=== PATIENT | male | born 1950 | race Caucasian/White ===

== ENCOUNTER 2023-09-11 12:28 | Inpatient (IN) | payer OTHER ==
[2023-09-11] VITALS (30 sets, daily range): BP systolic 57–111; BP diastolic 43–79
[~2023-09-11] VITALS: Ht 177.8 cm; Wt 79.9 kg
[2023-09-11 12:50] LABS: Calcium, Ionized (POC) 1.04 mmol/L (1.10-1.46); Chloride (POC) 103 mmol/L (98-108); Creatinine (POC) 3.7 mg/dL (0.8-1.3); Glucose (ISTAT POC) >700 mg/dL (70-99); Hemoglobin (POC) 17.7 g/dL (13.5-17.5); Potassium (POC) 2.7 mmol/L (3.5-5.5); Sodium (POC) 138 mmol/L (135-148); Total CO2 (POC) 11 mmol/L (21-32)
[2023-09-11] MEDS ORDERED: Calcium Gluconate 10% 1,000 MG in NS 50 ML IV ONE (13:00)
[2023-09-11] MEDS ORDERED: Lactated Ringer's 1,000 ML IV SCH ×3 (13:00→15:30)
[2023-09-11] MEDS ORDERED: Lactated Ringer's 1,000 ML IV ONE ×5 (13:00→21:10)
[2023-09-11 13:05] LABS: Hematocrit 52.2 % (37.0-53.0); Hemoglobin 16.7 g/dL (13.5-17.5); Mean Corpuscular Volume 94 fL (80-100); Mean Platelet Volume 11.4 fL (9.1-12.4); NRBC ABSOLUTE 0.02 K/mm3 (0.00-0.02); NRBC Auto 0.1 /100 WBC (0.0-0.2); Platelet Count 384 K/mm3 (150-400); RDW Coefficient Variation 13.2 % (11.7-14.2); Red Blood Cell Count 5.57 M/mm3 (4.30-5.90); White Blood Cell Count 29.11 K/mm3 (4.00-11.30)
[2023-09-11 13:08] LABS: Source, Urine Foley catheter
[2023-09-11 13:15] LABS: Appearance, Urine Clear (Clear); Bilirubin, Urine Neg (Neg); Blood, Urine 4+ (Neg); Color, Urine Yellow (P-Yellow); Glucose Qualitative, Urine 4+ (Neg); Ketones, Urine 3+ (Neg); Leukocyte Esterase, Urine Neg (Neg); Nitrite, Urine Neg (Neg); Protein, Urine 2+ (Neg); Urobilinogen, Urine NORM (Normal)
[2023-09-11 13:23] LABS: Amorphous Light (0-Heavy); Bacteria Few /hpf; Squamous Epithelial Cells Many /hpf (Few)
[2023-09-11 13:25] LABS: Base Excess Venous -26.1 mmol/L; Bicarbonate Venous 8.3 mmol/L (24.0-30.0); PCO2 Venous 26.1 mmHg (38-42); pH Blood Venous 6.96 (7.34-7.37)
[2023-09-11 13:25] LABS: BAND PERCENT MAN 6 % (0-8); BASOPHILS PERCENT MAN 0 % (0-2); EOSINOPHILS PERCENT MAN 0 % (0-6); LYMPHOCYTES ABSOLUTE MAN 2.91 K/mm3 (0.84-5.20); LYMPHOCYTES PERCENT MAN 10 % (21-46); METAMYELOCYTE ABSOLUTE MAN 0.29 K/mm3 (0.00-0.00); METAMYELOCYTE PERCENT MAN 1 % (0-0); MONOCYTES ABSOLUTE MAN 0.58 K/mm3 (0.16-1.47); MONOCYTES PERCENT MAN 2 % (4-13); NEUTROPHILS ABSOLUTE MAN 25.32 K/mm3 (1.96-9.15); SEG NEUTROPHILS PERCENT MAN 81 % (41-73); TOTAL CELLS COUNTED 100
[2023-09-11] MEDS ORDERED: Sodium Bicarb 8.4% Inj 150 MEQ in Dextrose 5% 1,000 ML IV SCH (13:45)
[2023-09-11 14:26] LABS: Magnesium, Blood 3.5 mg/dL (1.6-2.4); Thyroid Stimulating Hormone 0.226 uIU/mL (0.360-4.800)
[2023-09-11] MEDS ORDERED: Potassium Chloride 20 MEQ/15 ML UDC PO ONE ×2 (14:30→15:20)
[2023-09-11] MEDS ORDERED: Insulin Human Regular 100 UNIT in NS 100 ML IV SCH (15:00)
[2023-09-11 15:20] LABS: Albumin/Globulin Ratio 0.4 (0.8-1.8); Bilirubin, Total 0.5 mg/dL (0.1-1.0); Bun/Creatinine Ratio 29.4 (12.0-20.0); Creatinine, Blood 2.99 mg/dL (0.60-1.20); Globulin, Blood 4.8 g/dL (2.2-4.0); Potassium, Blood 2.5 mmol/L (3.5-5.5); Total Protein, Blood 6.8 g/dL (6.4-8.2)
[2023-09-11] MEDS ORDERED: Potassium Chloride 40 MEQ in NS 250 ML IV ONE ×2 (15:20→21:05)
[2023-09-11] MEDS ORDERED: CefTRIAXone Sodium 1,000 MG in NS 50 ML IV ONE (15:30)
[2023-09-11 16:15] LABS: U Amphetamine Screen Not Detected; U Barbituate Screen Not Detected; U Benzodiazapine Screen Not Detected; U Buprenorphine Screen Not Detected; U Cannabinoids Screen Not Detected; U Cocaine Screen Not Detected; U Methadone Screen Not Detected; U Methamphetamine Screen Not Detected; U Opiates Screen Not Detected; U Oxycodone Screen Not Detected; U Phencyclidine Screen Not Detected
[2023-09-11] MEDS ORDERED: FLU VACC QS2023-24(6MOS UP)/PF 60 MCG/0.5 ML SYRINGE IM SCH (17:00)
[2023-09-11] MEDS ORDERED: Vancomycin HCL 1,000 MG in NS 100 ML IV ONE (17:35)
[2023-09-11 17:39] LABS: Bun/Creatinine Ratio 30.1 (12.0-20.0); Calcium, Blood 8.5 mg/dL (8.5-10.1); Creatinine, Blood 2.92 mg/dL (0.60-1.20); Potassium, Blood 2.8 mmol/L (3.5-5.5)
[2023-09-11] MEDS ORDERED: Cefepime HCl 2,000 MG in NS 100 ML IV SCH (18:00)
[2023-09-11] MEDS ORDERED: NS 250 ML IV PRN ×2 (18:15→19:40)
[2023-09-11 18:45] LABS: PO2 Arterial 237 mmHg (80-100)
[2023-09-11 18:46] LABS: pH Blood Arterial 7.21 (7.35-7.45)
--- NOTE | 2023-09-11 18:47 | NUR ---
Assumed care of pt on arrival to ICU 7 from emergency department at 1735. Pt arrived intubated with 8.0 cm ETT placed 25 cm at [facility]. Dr Chan in room to see patient on arrival. Provider discussed vent settings with RT and ordered for patient to receive PICC line, PICC line placed to SLOAN with 4 cm exposed by PICC RN Delia. Pt arrived with IO to LLL. Dressing no longer intact and site would not draw back so it was removed and dressed with coban. Pt assessment is as follows: Neuro: No cough, gag or corneal reflex. No response to central or peripheral applied stimulus. Pupils are pinpoint with no response to light. Gentle movement to eyes noted when dolls eyes assessed. Pt is unrestrainted. Noted that pt reportely received rocuronium during intubation in field. Hypothermic per core measurement. External heating blanket in place. Resp: Lungs coarse t/o. Large amount of creamy green sputum aspirated from ETT and sent for culture. Vent settings are ACVC 18/500/5/35%. ETCO2 21. Pt has not breathed over set rate on vent. Cardiac: SR per monitor. BP initially stable but levophed was started due to MAP less than 65. Currently at 2 mcg/min. Strong distal pulses BUE and BLE. Capillary refill less than 3 seconds. GI: OG tube to LIS with scant amount of bilious drainage. Absent BT. : 200 mL urine output since azevedo inserted. Skin: Redness over R hip, two sores to right lateral knee. Eschar with hardness and erythema to posterior right thigh. All sites photographed and assessed with Dr Chan. Psychosocial: Neuro as discussed above. Unable to reach family, multiple attempts made by ER staff and nursing supervisor dental laboratory.
[2023-09-11 19:50] LABS: Base Excess Venous -14.1 mmol/L; Bicarbonate Venous 14.5 mmol/L (24.0-30.0); PCO2 Venous 36.7 mmHg (38-42); pH Blood Venous 7.19 (7.34-7.37)
[2023-09-11 20:33] LABS: Acetaminophen, Random <2.0 ug/mL (10.0-30.0); Salicylate 5.1 mg/dL (2.8-20.0)
[2023-09-11 20:40] LABS: Alanine Aminotransfer (ALT/SGP 23 U/L (12-78); Albumin, Blood 1.9 g/dL (3.4-5.0); Albumin/Globulin Ratio 0.5 (0.8-1.8); Alk Phos 167 U/L (50-136); Anion Gap 20 mmol/L (6-16); Aspartate Aminotrans (AST/SGOT 67 U/L (12-37); Bilirubin, Total 0.6 mg/dL (0.1-1.0); Blood Urea Nitrogen 89 mg/dL (8-24); Bun/Creatinine Ratio 31.1 (12.0-20.0); CO2, Blood 16 mmol/L (21-32); Calcium, Blood 8.3 mg/dL (8.5-10.1); Chloride, Blood 104 mmol/L (98-108); Creatinine, Blood 2.86 mg/dL (0.60-1.20); Globulin, Blood 4.2 g/dL (2.2-4.0); Glomerular Filtration Rate 23 (60-); Glucose, Blood 828 mg/dL (70-99); Potassium, Blood 3.1 mmol/L (3.5-5.5); Sodium, Blood 140 mmol/L (136-145); Total Protein, Blood 6.1 g/dL (6.4-8.2)
[2023-09-11] MEDS ORDERED: Vasopressin 50 UNITS in NS 50 ML IV SCH (21:10)
--- NOTE | 2023-09-11 22:27 | NUR ---
ASSUMED CARE AT 1900 PT LAYING IN BED INTUBATED WITH VENT SETTINGS AC/VC 18/500/5/30%; SMALL AMOUNT OF GREEN SPUTUM FROM ETT, HIS RR 18. HE IS UNRESPONSIVE; NON GAG OR COUGH; SLUGGISH PUPILS NOW THAT ARE 3MM; NO SEDATION AT THIS TIME; ALL EXTREMITIES FLACCID. BAREHUGGER ON PT AND TEMP CORRECTING. HR 90-110. LEVOPHED INFUSING AND TITRATED UP; VASOPRESSIN NOW INFUSING TOO AFTER CONVERSATION WITH DR WINTERS. OG TO LIS; GREEN OUTPUT NOTED. NICK IN PLACE AND DRAINING TO GRAVITY; MINIMAL OUTPUT AT THIS TIME. ABRASION NOTED TO RT KNEE; WOUND TO RT LATERAL/POSTERIOR HIP NOTED, STARTING TO HAVE MINIMAL DRAINAGE, WOUND NOW OUTLINES. PICC NOTED TO LUE. BICARB GTT INFUSING AT 150ML/HR. SEE ADMISSION ASSESSMENT FOR FULL ASSESSMENT. CALL MADE TO DR WINTERS AT 2100 REGARDING LABS. NEW ORDERS PROVIDED TO START VASOPRESSIN, GIVE AN ADDITIONAL 40MEQ OF KCL, START THE INSULIN, AND GIVE AN ADDITIONAL LR 1L BOLUS.
[2023-09-11 23:35] LABS: Glucose, Blood 790 mg/dL (70-99)
[2023-09-12] VITALS (95 sets, daily range): BP systolic 53–135; BP diastolic 32–90
[2023-09-12] MEDS ORDERED: Hydrogen Peroxide 1.5 % Solution MT SCH ×2
--- NOTE | 2023-09-12 00:35 | NUR ---
UPDATE PT IS NOW ATTEMPTING TO OPEN HIS EYES WHEN ASKED. HE IS STARTING TO MOVE HEAD [id number] AND MOVE HIS TOES SPONTANIOUSLY. BREATHING OVER THE VENT WITH RR 20-22. EXTREMITIES LESS FLACCID DURING BED BATH. PUPILS MORE REACTIVE. PLACED IN RESTRAINTS TO PROTECT TUBES. GAG AND COUGH NOW PRESENT. WILL CONT CARE PLAN.
[2023-09-12 00:39] LABS: Bun/Creatinine Ratio 31.9 (12.0-20.0); Calcium, Blood 7.8 mg/dL (8.5-10.1); Creatinine, Blood 2.88 mg/dL (0.60-1.20); Potassium, Blood 3.2 mmol/L (3.5-5.5)
[2023-09-12 01:49] LABS: Glucose, Blood 770 mg/dL (70-99)
[2023-09-12] MEDS ORDERED: Acetaminophen 650 MG Supp PR PRN (02:00)
[2023-09-12] MEDS ORDERED: Potassium Chloride 40 MEQ in NS 250 ML IV ONE (02:30)
[2023-09-12 02:36] LABS: Glucose, Blood 749 mg/dL (70-99)
[2023-09-12 03:38] LABS: Glucose, Blood 737 mg/dL (70-99)
[2023-09-12 04:11] LABS: Base Excess Venous -1.7 mmol/L; Bicarbonate Venous 22.8 mmol/L (24.0-30.0); PCO2 Venous 37.1 mmHg (38-42)
[2023-09-12 04:13] LABS: Hematocrit 39.1 % (37.0-53.0); Hemoglobin 14.1 g/dL (13.5-17.5); Mean Corpuscular HGB 29.9 pg (26.0-34.0); Mean Corpuscular HGB Conc 36.1 g/dL (31.5-36.5); Mean Platelet Volume 11.3 fL (9.1-12.4); NRBC ABSOLUTE 0.03 K/mm3 (0.00-0.02); NRBC Auto 0.2 /100 WBC (0.0-0.2); Platelet Count 140 K/mm3 (150-400); RDW Coefficient Variation 12.6 % (11.7-14.2); RDW Standard Deviation 38.5 fL (35.1-46.3); Red Blood Cell Count 4.72 M/mm3 (4.30-5.90); White Blood Cell Count 12.43 K/mm3 (4.00-11.30)
[2023-09-12 04:28] LABS: Mean Corpuscular Volume 83 fL (80-100)
[2023-09-12 04:33] LABS: BAND PERCENT MAN 17 % (0-8); BASOPHILS PERCENT MAN 0 % (0-2); EOSINOPHILS PERCENT MAN 0 % (0-6); LYMPHOCYTES ABSOLUTE MAN 0.49 K/mm3 (0.84-5.20); LYMPHOCYTES PERCENT MAN 4 % (21-46); MONOCYTES ABSOLUTE MAN 0.49 K/mm3 (0.16-1.47); MONOCYTES PERCENT MAN 4 % (4-13); MYELOCYTE ABSOLUTE MAN 0.24 K/mm3 (0.00-0.00); MYELOCYTE PERCENT MAN 2 % (0-0); NEUTROPHILS ABSOLUTE MAN 11.18 K/mm3 (1.96-9.15); SEG NEUTROPHILS PERCENT MAN 73 % (41-73); TOTAL CELLS COUNTED 100
[2023-09-12 04:47] LABS: Magnesium, Blood 1.9 mg/dL (1.6-2.4)
[2023-09-12 04:55] LABS: Alanine Aminotransfer (ALT/SGP 19 U/L (12-78); Albumin, Blood 1.5 g/dL (3.4-5.0); Albumin/Globulin Ratio 0.4 (0.8-1.8); Alk Phos 107 U/L (50-136); Anion Gap 14 mmol/L (6-16); Aspartate Aminotrans (AST/SGOT 53 U/L (12-37); Bilirubin, Total 0.3 mg/dL (0.1-1.0); Blood Urea Nitrogen 90 mg/dL (8-24); Bun/Creatinine Ratio 31.8 (12.0-20.0); CO2, Blood 23 mmol/L (21-32); Calcium, Blood 7.9 mg/dL (8.5-10.1); Chloride, Blood 109 mmol/L (98-108); Creatinine, Blood 2.83 mg/dL (0.60-1.20); Globulin, Blood 3.9 g/dL (2.2-4.0); Glomerular Filtration Rate 23 (60-); Glucose, Blood 655 mg/dL (70-99); Phosphorus, Blood 0.5 mg/dL (2.5-4.9); Potassium, Blood 3.1 mmol/L (3.5-5.5); Sodium, Blood 146 mmol/L (136-145); Total Protein, Blood 5.4 g/dL (6.4-8.2); Vancomycin, Random 14.4 ug/mL
[2023-09-12 05:39] LABS: Glucose, Blood 621 mg/dL (70-99)
--- NOTE | 2023-09-12 05:41 | NUR ---
UPDATE CALL MADE TO DR WINTERS REGARDING CRITICAL AM LABS AND TO GIVE AN UPDATE. NEW ORDERS PROVIDED.
[2023-09-12] MEDS ORDERED: Potassium Phosphate Dibasic 30 MM in Dextrose 5% 500 ML IV ONE (06:00)
--- NOTE | 2023-09-12 06:22 | NUR ---
END OF SHIFT SUMMARY PT NEURO STATUS IMPROVING SLOWLY; HE ATTEMPTS TO OPEN EYES WITH VERBAL STIMULATION BUT HAS NOT FOLLOWED DIRECTIONS; GAG AND COUGH PRESENT; OVER BREATHING THE VENT; CONT TO NOT HAVE SEDATION; MINIMALLY MOVING HANDS AND FEET SPONTANIOUSLY; RESTRAINTS NOW IN PLACE. MAX TEMP 101.1; PRN TYLENOL, ICE PACKS, AND FAN HELPED. VENT SETTINGS AC/VC 18/500/5/30%; SMALL TO MODERATE AMOUNT OF THICK SECREATIONS. HR 100-120. SBP 90-100 WITH LEVOPHED INFUSING AT 16MCG/MIN AND VASOPRESSIN INFUSING AT 0.04UNITS/MIN. OG TO LIS WITH DARK GREEN OUTPUT. NICK IN PLACE WITH 300ML OUTPUT TOTAL. NO CHANGE TO WOUNDS. INSULIN INFUSING AT 6UNITS/HR; GLUCOSE RANGING FROM 600-700. BICARB INFUSING AT 100ML/HR. KPHOS NOW BEING REPLACED. WILL REPORT TO AM RN WHEN AVAILABLE.
[2023-09-12 06:29] LABS: Glucose, Blood 553 mg/dL (70-99)
[2023-09-12] MEDS ORDERED: Vancomycin HCL 1,000 MG in NS 100 ML IV ONE (07:05)
--- NOTE | 2023-09-12 07:15 | NUR ---
Assumed care of pt at 0700. Bedside report received from Sandee RIVAS. No sedation. Cough, gag, corneal reflexes present. Withdraws legs from nail bed pressure. Does not withdraw hands from nail bed pressure. Vent settings ACVC 18/500/5/30%. SpO2 90% or greater. Insulin at 6 units/hr from blood sugar control. Levophed 16 mcg/min. Vasopressin 0.04 units/min. BP stable.
[2023-09-12 08:02] LABS: PO2 Arterial 67.6 mmHg (80-100); pH Blood Arterial 7.49 (7.35-7.45)
[2023-09-12 09:00] LABS: Bun/Creatinine Ratio 30.4 (12.0-20.0); Calcium, Blood 7.8 mg/dL (8.5-10.1); Creatinine, Blood 2.8 mg/dL (0.60-1.20); Potassium, Blood 3.2 mmol/L (3.5-5.5)
[2023-09-12] MEDS ORDERED: Pantoprazole Sodium 40 MG Injection IV SCH (09:00)
[2023-09-12] MEDS ORDERED: Heparin Sodium,Porcine 5,000 UNIT/0.5 ML SDV SC SCH (09:00)
--- NOTE | 2023-09-12 09:00 | NUR ---
Dr Ahuja in unit, showed RLE wound to provider. New orders received
[2023-09-12] MEDS ORDERED: Lactated Ringer's 1,000 ML IV SCH ×3 (09:25→13:00)
[2023-09-12 11:45] LABS: Glucose, Blood 411 mg/dL (70-99)
[2023-09-12] MEDS ORDERED: Clindamycin 900mg in D5W 50ML 50 ML IV SCH (12:00)
[2023-09-12 12:51] LABS: Beta-hydroxybutyrate 0.8 mg/dL (0.2-2.8); Ethanol (Alcohol), Blood, Med <3 mg/dL; Magnesium, Blood 1.7 mg/dL (1.6-2.4); Phosphorus, Blood 1.4 mg/dL (2.5-4.9)
[2023-09-12] MEDS ORDERED: Hydrocortisone Sod Succinate 100 MG Vial IV SCH (12:55)
[2023-09-12] MEDS ORDERED: PHENYLEPHRINE HCL IV SCH (12:55)
[2023-09-12] MEDS ORDERED: NS IV SCH (12:55)
[2023-09-12] MEDS ORDERED: Sodium Hypochlorite 0.125% 473 ML BTL TOP ONE (13:15)
--- NOTE | 2023-09-12 13:15 | NUR ---
Pt to OR with Dr oJe Martinez for debridement. Increase in vasopressor requirements prior to departure. This was discussed with Dr Chan and surgical team.
[2023-09-12 13:51] LABS: Bun/Creatinine Ratio 32.1 (12.0-20.0); Calcium, Blood 7.5 mg/dL (8.5-10.1); Creatinine, Blood 2.74 mg/dL (0.60-1.20); Potassium, Blood 3.3 mmol/L (3.5-5.5)
[2023-09-12] MEDS ORDERED: Potassium Phosphate Dibasic 30 MM in Dextrose 5% 500 ML IV STA (14:34)
[2023-09-12] MEDS ORDERED: Calcium Chloride 10% 2,000 MG in NS 100 ML IV ONE (14:35)
[2023-09-12] MEDS ORDERED: Calcium Chloride 10% 10 ML SYR IV ONE (14:35)
[2023-09-12 19:12] LABS: Anti-Xa UFH, PHA Monitoring <0.10 IU/mL; International Normalized Ratio 1.26; Prothrombin Time Results 13.1 Sec (9.7-11.5)
[2023-09-12] MEDS ORDERED: Heparin Sodium 5000 Units/ML 1ML MDV IV ONE (19:20)
[2023-09-12] MEDS ORDERED: Heparin Sodium,Porcine/0.5 NS 500 ML IV SCH (19:20)
--- NOTE | 2023-09-12 19:32 | NUR ---
SUMMARY Neuro: Reponsive to painful stimlulus via trapezius squeeze and nail bed pressure. Withdraws BLE to nail bed pressure, but does not withdraw BUE to nail bed pressure. Spontaneous movement noted to RUE. No movement noted to LUE. This was discussed with Dr Chan. Pupils 2 mm, responsive to light. Cough, gag, corneal reflexes intact. Resp: Coarse t/o. Large amounts of thick green sputum suctioned from ETT. Vent settings ACVC 16/500/5/30%. SpO2 90% or greater. Cardiac: ST per monitor. MAPs 80s, SBP in 90s with levophed at 20 mcg/min and vasopressin 0.04 units/min. This was discussed with Dr Chan, no additional changes to pump rates at this time. GI: Large amount of output from OG tube to LIS. Absent BT. No BM this shift. : Good amount of kwasi urine output. Skin: Unchanged from initial assessment with exception of wound to right lateral/posterior thigh which was debrieded in operating room this shift. Dressing has not been removed but per reports and dressing change orders, there is dakins soaked gauze beneath the visible ABD pad and medipore tape. Protective sacral dressing placed as pt is not being repositioned onto side of surgical wound. Psychosocial: Discussed lack of family contact information with palliative care RN and family independence case manager during interdisciplinary rounds. New new information on family/decision maker for this patient.
[2023-09-12] MEDS ORDERED: Lactobacil 2-S.Thermo-Bifido 1 1 Cap PT SCH (21:00)
[2023-09-12 21:39] LABS: Phosphorus, Blood 4.1 mg/dL (2.5-4.9); Potassium, Blood 3.4 mmol/L (3.5-5.5)
[2023-09-12] MEDS ORDERED: Calcium Chloride 10% 1,000 MG in NS 50 ML IV ONE (22:15)
[2023-09-12] MEDS ORDERED: Potassium Chl 20MEQ/Water100ML 100 ML IV ONE (22:15)
[2023-09-13] VITALS (94 sets, daily range): BP systolic 80–136; BP diastolic 48–88
--- NOTE | 2023-09-13 01:28 | NUR ---
ASSUMED CARE ASSUMED CARE AT 1900. PT INTUBATED WITH NO SEDATION. 15/500/5/30% RR 15-22. LEVOPHED AND VASOPRESSIN GTT INFUSING. SEE FLOWSHEET FOR TITRATION. LR AT 100ML/HR. HEPARIN GTT STARTED. OTHER VSS. WITHDRAWS FROM TACTILE TOUCH ON BLE. PT DID WITHDRAW RUE ON 1999 ASSESSMENT. DID NOT WITHDRAW RUE AT 0000 ASSESSMENT. SPONT MOVEMENT TO BLE, AND RUE. GRIMACES AND MOVES HEAD WITH ORAL CARE AND EYE ASSESSMENT. HYPOACTIVE BT IN BUQ. NO BT IN BLQ. DRSG TO R HIP/THIGH C/D/I. OGT TO LIS. NICK PATENT AND DRAINING TO GRAVITY. DR WINTERS CALLED WITH 2100 LABS. ORDERS RECEIVED, SEE EMAR.
[2023-09-13 02:13] LABS: Base Excess Venous 5.2 mmol/L; Bicarbonate Venous 28.8 mmol/L (24.0-30.0); PCO2 Venous 38.7 mmHg (38-42); pH Blood Venous 7.48 (7.34-7.37)
[2023-09-13 02:16] LABS: Hematocrit 32.5 % (37.0-53.0); Hemoglobin 11.9 g/dL (13.5-17.5); Mean Corpuscular HGB 29.9 pg (26.0-34.0); Mean Corpuscular HGB Conc 36.6 g/dL (31.5-36.5); Mean Corpuscular Volume 82 fL (80-100); Mean Platelet Volume 11.3 fL (9.1-12.4); NRBC ABSOLUTE 0.03 K/mm3 (0.00-0.02); NRBC Auto 0.1 /100 WBC (0.0-0.2); Platelet Count 73 K/mm3 (150-400); RDW Coefficient Variation 12.5 % (11.7-14.2); RDW Standard Deviation 37.6 fL (35.1-46.3); Red Blood Cell Count 3.98 M/mm3 (4.30-5.90); White Blood Cell Count 25.11 K/mm3 (4.00-11.30)
[2023-09-13 02:40] LABS: Alanine Aminotransfer (ALT/SGP 24 U/L (12-78); Albumin, Blood 1.2 g/dL (3.4-5.0); Albumin/Globulin Ratio 0.3 (0.8-1.8); Alk Phos 80 U/L (50-136); Anion Gap 5 mmol/L (6-16); Aspartate Aminotrans (AST/SGOT 63 U/L (12-37); BAND PERCENT MAN 30 % (0-8); BASOPHILS PERCENT MAN 0 % (0-2); Bilirubin, Total 0.4 mg/dL (0.1-1.0); Blood Urea Nitrogen 73 mg/dL (8-24); Bun/Creatinine Ratio 36.9 (12.0-20.0); CO2, Blood 29 mmol/L (21-32); Calcium, Blood 8.7 mg/dL (8.5-10.1); Chloride, Blood 110 mmol/L (98-108); Creatinine, Blood 1.98 mg/dL (0.60-1.20); EOSINOPHILS PERCENT MAN 0 % (0-6); Globulin, Blood 3.7 g/dL (2.2-4.0); Glomerular Filtration Rate 35 (60-); Glucose, Blood 159 mg/dL (70-99); LYMPHOCYTES ABSOLUTE MAN 1.25 K/mm3 (0.84-5.20); LYMPHOCYTES PERCENT MAN 5 % (21-46); METAMYELOCYTE ABSOLUTE MAN 0.25 K/mm3 (0.00-0.00); METAMYELOCYTE PERCENT MAN 1 % (0-0); MONOCYTES PERCENT MAN 4 % (4-13); MYELOCYTE ABSOLUTE MAN 0.25 K/mm3 (0.00-0.00); MYELOCYTE PERCENT MAN 1 % (0-0); Magnesium, Blood 1.6 mg/dL (1.6-2.4); NEUTROPHILS ABSOLUTE MAN 22.34 K/mm3 (1.96-9.15); Phosphorus, Blood 2.8 mg/dL (2.5-4.9); Potassium, Blood 3.3 mmol/L (3.5-5.5); SEG NEUTROPHILS PERCENT MAN 59 % (41-73); Sodium, Blood 144 mmol/L (136-145); TOTAL CELLS COUNTED 100; Total Protein, Blood 4.9 g/dL (6.4-8.2); Vancomycin, Random 18.1 ug/mL
[2023-09-13] MEDS ORDERED: Dose Adjust by Pharmacy XX STA (02:41)
[2023-09-13] MEDS ORDERED: Potassium Chloride 40 MEQ in NS 250 ML IV ONE (04:00)
[2023-09-13] MEDS ORDERED: Insulin Regular 100 UNIT/ML 10ML Vial SC SCH (06:00)
--- NOTE | 2023-09-13 06:40 | NUR ---
SHIFT SUMMARY NO ACUTE EVENTS T/O NIGHT. REMAINS INTUBATED WITH NO SEDATION. THIS AM PT MOVING BLE AND RUE MORE. MOVING HEAD BACK AND FORTH. PT VERY STIFF AND ATTEMPTED TO TRY AND SUPPORT HEAD BACK BUT PT CONTINUES TO LEAN HEAD DOWN. PT BITING ON BITE BLOCK AND PUSHING IT FORWARD WITH TONGUE. DOES NOT FOLLOW COMMANDS, OR OPEN EYES. DURING BATH PT PULLING RUE DOWN WHEN LIFTED UP. VSS. LEVOPHED, HEPARIN AND VASOPRESSIN GTT INFUSING. CALL TO DR WINTERS THIS AM REGARDING MORNING LABS AND GLUCOSE OF 159. ORDER TO TRANSITION TO HSS AND GIVE 40 MEQS OF KCL IV. OGT TO LISAdriano GERARDEY PATENT AND DRAINING TO GRAVITY. REPORT GIVEN TO DAY RN.
[2023-09-13] MEDS ORDERED: Vancomycin HCL 1,000 MG in NS 100 ML IV ONE (08:00)
[2023-09-13] MEDS ORDERED: Sodium Hypochlorite 0.125% 473 ML BTL TOP PRN (09:00)
--- NOTE | 2023-09-13 10:28 | NUR ---
Assumed care of pt at 0700. Bedside report receive from Connie RIVAS. Pt does not have sedation. Responsive to painful stimulus. Cough, gag, and corneal reflexes intact. Does not withdraw BUE to nail bed pressure- Dr Chan aware. Placed in contact isolation for blood and wound cultures positive for MRSA. Vent settings ACVC 15/500/5/30%. SpO2 90% or greater. Dr Chan and Dr Mercer in to see patient; plan of care discussed.
[2023-09-13] MEDS ORDERED: Heparin Sodium,Porcine 5,000 UNIT/0.5 ML SDV SC SCH (16:00)
[2023-09-13 17:31] LABS: Phosphorus, Blood 2.5 mg/dL (2.5-4.9); Potassium, Blood 3.5 mmol/L (3.5-5.5)
[2023-09-13] MEDS ORDERED: Insulin Human Lispro 100 Units/ML 3ML Syringe SC SCH (18:00)
[2023-09-13] MEDS ORDERED: Insulin Human Regular 100 UNIT/ML 10ML Vial SC SCH (18:00)
[2023-09-13] MEDS ORDERED: Potassium Phosphate Dibasic 20 MM in Dextrose 5% 500 ML IV STA (18:10)
--- NOTE | 2023-09-13 19:15 | NUR ---
SUMMARY Neuro: Reponsive to painful stimlulus via trapezius squeeze and nail bed pressure. Withdraws BLE to nail bed pressure, but does not withdraw BUE to nail bed pressure. Spontaneous movement noted to RUE. No movement noted to LUE. This was discussed with Dr Chan. Pupils 2 mm, responsive to light. Cough, gag, corneal reflexes intact. Resp: Clear t/o, dim in bases. Large amounts of thick green sputum suctioned from ETT. Vent settings ACVC 16/500/5/30%. SpO2 90% or greater. ETCO2 30 Cardiac: ST per monitor. Levophed and vasoprssin off. BP stable. GI: Hypoactive BT. OG tube placement verified on CXR. Tube feed and flush started per orders. : Good amount of kwasi urine output. Skin: Unchanged from initial assessment with exception of wound to right lateral/posterior thigh which was assessed and dressed by Dr Martinez with dakins soaked gauze, ABD pad, and PREMA wrap for securement. Provider was notified of new bruising to penis and scrotum. He does not think this was surgery related and thinks its more attributed to high dose vasopressors. Psychosocial: No new developments on family or alternate decision-maker for this patient.
--- NOTE | 2023-09-13 22:36 | NUR ---
ASSUMED CARE ASSUMED CARE AT 1900. PT INTUBATED AND IS NOT SEDATED. AC/VC 15/500/5/30%. RR 15-22. BP SOFT WITH SBP 80-90'S AND MAP ABOVE 65. LEVOPHED REMAINS ON STANDBY. TEMP LABILE. OTHER VSS. SR RATE 80-100'S. LR AT 100ML/HR. PT GRIMACES WITH NOXIOUS STIMULI, DOES NOT WITHDRAW BUE TO NAILBED PRESSURE. DOES MOVE BLE AND RUE SPONTANEOUSLY. TURNS HEAD AND SQUEEZES EYES SHUT WITH ORAL CARE AND EYE ASSESSMENT. DOES NOT OPEN EYES OR FOLLOW DIRECTIONS. DRSG TO R THIGH C/D/I. OGT WITH TF. RATE INCREASED TO GOAL AT 2200. NICK PATENT AND DRAINING TO GRAVITY.
[2023-09-14] VITALS (62 sets, daily range): BP systolic 70–109; BP diastolic 50–86
[2023-09-14 04:57] LABS: Hematocrit 26.4 % (37.0-53.0); Hemoglobin 9.4 g/dL (13.5-17.5); Mean Corpuscular HGB 29.9 pg (26.0-34.0); Mean Corpuscular HGB Conc 35.6 g/dL (31.5-36.5); Mean Corpuscular Volume 84 fL (80-100); Mean Platelet Volume 11.5 fL (9.1-12.4); NRBC ABSOLUTE 0.02 K/mm3 (0.00-0.02); NRBC Auto 0.1 /100 WBC (0.0-0.2); RDW Coefficient Variation 12.9 % (11.7-14.2); RDW Standard Deviation 39.1 fL (35.1-46.3); Red Blood Cell Count 3.14 M/mm3 (4.30-5.90); White Blood Cell Count 18.41 K/mm3 (4.00-11.30)
[2023-09-14 05:04] LABS: Platelet Count 49 K/mm3 (150-400)
[2023-09-14 05:24] LABS: Anion Gap 2 mmol/L (6-16); Blood Urea Nitrogen 60 mg/dL (8-24); Bun/Creatinine Ratio 43.5 (12.0-20.0); CO2, Blood 32 mmol/L (21-32); Calcium, Blood 7.3 mg/dL (8.5-10.1); Chloride, Blood 112 mmol/L (98-108); Creatinine, Blood 1.38 mg/dL (0.60-1.20); Glomerular Filtration Rate 54 (60-); Glucose, Blood 354 mg/dL (70-99); Magnesium, Blood 1.7 mg/dL (1.6-2.4); Phosphorus, Blood 2.4 mg/dL (2.5-4.9); Potassium, Blood 3.2 mmol/L (3.5-5.5); Sodium, Blood 146 mmol/L (136-145); Vancomycin, Random 16.8 ug/mL
[2023-09-14] MEDS ORDERED: Potassium Phosphate Dibasic 30 MM in Dextrose 5% 500 ML IV ONE (06:00)
[2023-09-14] MEDS ORDERED: Calcium Chloride 10% 2,000 MG in NS 100 ML IV ONE (06:00)
[2023-09-14 06:02] LABS: BAND PERCENT MAN 21 % (0-8); BASOPHILS PERCENT MAN 0 % (0-2); EOSINOPHILS PERCENT MAN 0 % (0-6); LYMPHOCYTES ABSOLUTE MAN 0.73 K/mm3 (0.84-5.20); LYMPHOCYTES PERCENT MAN 4 % (21-46); MONOCYTES ABSOLUTE MAN 0.36 K/mm3 (0.16-1.47); MONOCYTES PERCENT MAN 2 % (4-13); MYELOCYTE ABSOLUTE MAN 0.18 K/mm3 (0.00-0.00); MYELOCYTE PERCENT MAN 1 % (0-0); NEUTROPHILS ABSOLUTE MAN 17.12 K/mm3 (1.96-9.15); SEG NEUTROPHILS PERCENT MAN 72 % (41-73); TOTAL CELLS COUNTED 100
--- NOTE | 2023-09-14 06:41 | NUR ---
SHIFT SUMMARY NO ACUTE EVENTS T/O NIGHT. REMAINS INTUBATED WITH NO SEDATION. NO VENT SETTING CHANGES. VSS. TEMP LABILE. BP SOFT BUT MAP GREATER THEN 65. LR AT 100ML/HR. [employer] CALLED REGARDING MORNING PLT, HEMOGLOBIN, K+, PHOS, AND CALCIUM. ORDERS RECEIVED. OGT WITH TF AT GOAL. NICK PATENT AND DRAINING TO GRAVITY.
[2023-09-14] MEDS ORDERED: Vancomycin HCL 1,250 MG in NS 250 ML IV SCH (08:00)
--- NOTE | 2023-09-14 08:37 | NUR ---
ASSUMED CARE REPORT FROM ROMA RIVAS AT 0700. PT INTUBATED. CHANGED VENT SETTINGS TO SPONT 10/5/30%, TV 475-525ML AND RR 12-20 SHORTLY AFTER SHIFT CHANGE. TOLERATING WELL. LUNGS CLEAR, DIM IN BASES. +COUGH/GAG/SWALLOW REFLEX. OPENS EYES TO VERBAL STIMULI, DOES NOT MAKE EYE CONTACT OR FOLLOW COMMANDS. W/D LOWER EXT TO PAINFUL STIMULI. NO SEDATION. SR, RATE 80-90'S. BP STABLE. TUBE FEEDS AGO GOAL VIA OGT. ABD ROUND, SOFT, NON TENDER. BT X 4. NICK PATENT, DRAINING CLEAR YELLOW URINE TO GRAVITY. PICC TO LUE, DRESSING C/D/I. WILL CONTINUE PLAN OF CARE.
[2023-09-14 11:21] LABS: Phosphorus, Blood 4.1 mg/dL (2.5-4.9); Potassium, Blood 3.8 mmol/L (3.5-5.5)
[2023-09-14] MEDS ORDERED: CefTRIAXone Sodium 1,000 MG in NS 50 ML IV SCH (12:00)
--- NOTE | 2023-09-14 16:58 | NUR ---
SHIFT SUMMARY NO ACUTE CHANGES THIS SHIFT. REMAINED ON SPONT 05/15/%, RR 12-22, TV 475-525 ML. LUNGS DIM IN BASES. INCREASE IN SECRETIONS FROM ETT, YELLOW, THICK MODERATE. NO SEDATION. CT HEAD COMPLETE THIS SHIFT, NO ACUTE PROCESSES. PT MORE ACTIVE c EXT, MOVING BLE AND RUE FREQUENTLY, OCCASIONAL SMALL MOVEMENT TO LUE. OPENS EYES TO VERBAL STIMULI, DOES NOT FOLLOW COMMANDS. +COUGH/GAG/SWALLOW. GRIMACES c CARE. SR, RATE 90-100'S. BP STABLE. IVF D/C'D. DRESSING TO WOUND CHANGED, NO CHANGE IN APPEARANCE SINCE DEBRIDEMENT PHOTOS. NICK PATENT, DRAINED 1450 ML CLEAR YELLOW URINE OUT. PICC TO LUE, DRESSING C/D/I. WILL CONTINUE PLAN OF CARE UNTIL REPORT TO ONCOMING NURSE.
--- NOTE | 2023-09-14 23:50 | NUR ---
ASSUMED CARE ASSUMED CARE AT 1900. PT INTUBATED WITH NO SEDATION. ON SPONT THEN SWITCHED TO AC/VC 15/500/5/30% BY RT. RR 15-24. PT OPENS EYES TO VERBAL STIMULI, DOES NOT TRACK OR FOLLOW COMMANDS. GRIMACES AND MOVES HEAD WITH ORAL CARE. MOVES BLE AND RUE SPONT. DOES NOT WITHDRAW BUE TO NOXIOUS STIMULI. BRUISED AREA ON SCROTUM NOW RED AND OPEN. SCROTUM CLEANED AND FLOATED. VSS. PICC TO LUE SL. OGT WITH TF AT GOAL. NICK PATENT AND DRAINING TO GRAVITY.
[2023-09-15] VITALS (46 sets, daily range): BP systolic 97–158; BP diastolic 59–96
[2023-09-15 03:43] LABS: Hematocrit 25.9 % (37.0-53.0); Mean Corpuscular HGB 30.1 pg (26.0-34.0); Mean Corpuscular HGB Conc 34.7 g/dL (31.5-36.5); Mean Corpuscular Volume 87 fL (80-100); Mean Platelet Volume 12.2 fL (9.1-12.4); NRBC ABSOLUTE 0.02 K/mm3 (0.00-0.02); NRBC Auto 0.1 /100 WBC (0.0-0.2); RDW Coefficient Variation 13.2 % (11.7-14.2); RDW Standard Deviation 41.5 fL (35.1-46.3); Red Blood Cell Count 2.99 M/mm3 (4.30-5.90); White Blood Cell Count 15.64 K/mm3 (4.00-11.30)
[2023-09-15 03:47] LABS: Platelet Count 49 K/mm3 (150-400)
[2023-09-15 04:07] LABS: Anion Gap Unable to Calculate mmol/L (6-16); Blood Urea Nitrogen 45 mg/dL (8-24); Bun/Creatinine Ratio 41.3 (12.0-20.0); CO2, Blood 33 mmol/L (21-32); Calcium, Blood 7.8 mg/dL (8.5-10.1); Chloride, Blood 118 mmol/L (98-108); Creatinine, Blood 1.09 mg/dL (0.60-1.20); Glomerular Filtration Rate 72 (60-); Glucose, Blood 314 mg/dL (70-99); Phosphorus, Blood 1.9 mg/dL (2.5-4.9); Potassium, Blood 3.3 mmol/L (3.5-5.5); Sodium, Blood 150 mmol/L (136-145)
[2023-09-15 04:29] LABS: BAND PERCENT MAN 10 % (0-8); BASOPHILS PERCENT MAN 0 % (0-2); EOSINOPHILS PERCENT MAN 0 % (0-6); LYMPHOCYTES ABSOLUTE MAN 0.93 K/mm3 (0.84-5.20); LYMPHOCYTES PERCENT MAN 6 % (21-46); MONOCYTES ABSOLUTE MAN 0.93 K/mm3 (0.16-1.47); MONOCYTES PERCENT MAN 6 % (4-13); NEUTROPHILS ABSOLUTE MAN 13.76 K/mm3 (1.96-9.15); SEG NEUTROPHILS PERCENT MAN 78 % (41-73); TOTAL CELLS COUNTED 100
[2023-09-15] MEDS ORDERED: Calcium Chloride 10% 2,000 MG in NS 100 ML IV ONE (06:00)
[2023-09-15] MEDS ORDERED: Potassium Phosphate Dibasic 30 MM in Dextrose 5% 500 ML IV ONE (06:00)
--- NOTE | 2023-09-15 06:12 | NUR ---
SHIFT SUMMARY NO ACUTE EVENTS T/O NIGHT. NO VENT SETTING CHANGES SINCE PREVIOUS NOTE. PT REMAINED INTUBATED, AND NOT SEDATED. PT OPENING EYES TO VERBAL STIMULI. PT DID MOVE LEFT ARM TWICE SPONT. CONTINUES TO NOT WITHDRAW FROM PAINFUL STIMULI ON BUE. PT LIFTING AND BENDING LLE, CROSSING IT OVER RIGHT. VSS. SR RATE 80-90'S. BP STABLE. SINGH CALLED WITH AM LABS. ORDERS RECEIVED. OGT WITH TF AT GOAL. NICK PATENT AND DRAINING TO GRAVITY. WILL REPORT OFF TO ONCOMING RN.
--- NOTE | 2023-09-15 08:00 | NUR ---
CARE ASSUMPTION DURING BEDSIDE SHIFT REPORT Christiano BRANDON RN THE PT IS LYING IN BED INTUBATED ON THE VENTILATOR. ET TUBE CONFRIMED 8.0 24CM TO HIS TEETH. VENT SETTINGS 15/500/5.0 W 30% FIO2. BP WNL AND STABLE. MONITOR SHOWING SR 90'S. PT MOVING R ARM IN REPEDATIVE MOTION TOWARDS HIS FACE AND ET TUBE. PT MOVING BLE'S. PT NOT OPENING HIS EYES TO EITHER TO VOICE OR TOUCH. DR. RAYA IN AND CHANGED PT'S DRESSING ON R LEG WOUND.
[2023-09-15] MEDS ORDERED: Mag Sulfate 1 GM/D5% 100ML 100 ML IV STA (08:23)
[2023-09-15] MEDS ORDERED: Insulin Glargine-Yfgn 100 Unit/mL 3 ML SYR SC SCH (09:00)
--- NOTE | 2023-09-15 11:49 | NUR ---
Ethics consult order recieved and processed. Medical history, case notes, and prognositic indicators reviewed. The principal is currently relying on mechanical airway support, and has yet to demonstrate purposeful movement despite not being actively sedated. He is also reported to be unresponsive to painful stimuli. Whether the principal has suffered an anoxic injury, or has recovery potential is unclear at this juncture. If the principal declines further, or does not exhibit signs of stabilization and progress, please reach out for further guidance and support. Thank you for this consult. Norman Valdez, PhD, DRE
[2023-09-15] MEDS ORDERED: Insulin Regular 100 UNIT/ML 10ML Vial SC SCH (12:00)
[2023-09-15] MEDS ORDERED: Magnesium Hydroxide Conc 10 ML UDC PT PRN (12:35)
[2023-09-15] MEDS ORDERED: Bisacodyl 10 MG Supp PR PRN (12:35)
[2023-09-15] MEDS ORDERED: Docusate Sodium 100 MG UDC PT PRN (12:35)
[2023-09-15] MEDS ORDERED: Thiamine HCl 100 MG Tab PT ONE (12:40)
[2023-09-15 13:05] LABS: Albumin, Blood 1.2 g/dL (3.4-5.0); Anion Gap 1 mmol/L (6-16); Blood Urea Nitrogen 41 mg/dL (8-24); CO2, Blood 32 mmol/L (21-32); Calcium, Blood 9.1 mg/dL (8.5-10.1); Chloride, Blood 120 mmol/L (98-108); Creatinine, Blood 1.05 mg/dL (0.60-1.20); Glomerular Filtration Rate 75 (60-); Glucose, Blood 358 mg/dL (70-99); Magnesium, Blood 2.3 mg/dL (1.6-2.4); Phosphorus, Blood 3.8 mg/dL (2.5-4.9); Potassium, Blood 3.7 mmol/L (3.5-5.5); Sodium, Blood 153 mmol/L (136-145)
[2023-09-15] MEDS ORDERED: Thiamine HCl 100 MG Tab PT SCH (18:00)
--- NOTE | 2023-09-15 18:58 | NUR ---
DAY SHIFT SUMMARY PT'S NEURO STATUS HAS IMPROVED THIS SHIFT HE IS FOLLOWING SOME SIMPLE COMMANDS, FIELD CASHIER BOTH HANDS WHEN PROMPTED, OPENING HIS EYES WHEN PROMPTED BUT UNABLE TO MAINTAIN ANY EYE CONTACT. PT MOVING BILATERAL LOWER EXTREMITIES T/O THE SHIFT. PT MOVING RUE EVEN REACHING FOR ET TUBE SO RUE PLACED IN SOFT WRIST RESTRAINTS. PT W MINIMAL MOVEMENT OF LUE BUT DID HAVE WEAK FIELD CASHIER IN L HAND WHEN PROMPTED. BP WNL AND STABLE THIS SHIFT. MONITOR SHOWING LABILE HR BETWEEN SR 70'S-ST 100'S. PT AFEBRILE THIS SHIFT. SPO2 >94% ON VENT PS OF 12 W 30% FIO2. PT'S CBG'S ELEVATED THIS SHFT IN HIGH 300'S SO PROVIDER CONTACTED AND CHEMSTICKS CHANGED TO Q4H ON HIGH SS WELL BID LANTUS. PT'S NICK PATENT AND DRAINED 2L CLEAR YELLOW URINE THIS SHIFT. PT HAD ONE LOOSE BM THIS SHIFT. WILL REPORT TO ONCOMING RN.
--- NOTE | 2023-09-15 20:47 | NUR ---
ASSUMED CARE ASSUMED CARE AT 1900. PT INTUBATED WITH NO SEDATION. PS 12/5 30%. RR 10-18 TV 500-800. PT OPENING OR ATTEMPTING TO OPEN EYES ON COMMAND. ABLE TO SQUEEZE R HAND AND WIGGLE TOES ON COMMAND. ATTEMPTED TO NOD/SHAKE HEAD BUT UNABLE TO. MINIMALLY MOVES SLOAN. MOVES BLE'S. VSS. DRSG TO R LATERAL THIGH C/D/I. SCROTUM CARDIAC CARE UNIT NURSE AND FLOATED. SCD'S IN PLACE. OGT WITH TF AT GOAL. NICK PATENT AND DRAINING TO GRAVITY.
[2023-09-16] VITALS (39 sets, daily range): BP systolic 133–172; BP diastolic 76–108
[2023-09-16 04:00] LABS: Hematocrit 27.6 % (37.0-53.0); Hemoglobin 9.1 g/dL (13.5-17.5); Mean Corpuscular HGB 29.4 pg (26.0-34.0); Mean Corpuscular Volume 89 fL (80-100); Mean Platelet Volume 12.4 fL (9.1-12.4); NRBC ABSOLUTE 0.02 K/mm3 (0.00-0.02); NRBC Auto 0.1 /100 WBC (0.0-0.2); RDW Coefficient Variation 13.7 % (11.7-14.2); RDW Standard Deviation 44.6 fL (35.1-46.3); Red Blood Cell Count 3.09 M/mm3 (4.30-5.90); White Blood Cell Count 13.93 K/mm3 (4.00-11.30)
[2023-09-16 04:13] LABS: Platelet Count 50 K/mm3 (150-400)
[2023-09-16 04:21] LABS: BAND PERCENT MAN 1 % (0-8); BASOPHILS PERCENT MAN 0 % (0-2); EOSINOPHILS ABSOLUTE MAN 0.13 K/mm3 (0.00-0.68); EOSINOPHILS PERCENT MAN 1 % (0-6); LYMPHOCYTES ABSOLUTE MAN 1.39 K/mm3 (0.84-5.20); LYMPHOCYTES PERCENT MAN 10 % (21-46); MONOCYTES ABSOLUTE MAN 0.83 K/mm3 (0.16-1.47); MONOCYTES PERCENT MAN 6 % (4-13); NEUTROPHILS ABSOLUTE MAN 11.56 K/mm3 (1.96-9.15); SEG NEUTROPHILS PERCENT MAN 82 % (41-73); TOTAL CELLS COUNTED 100
[2023-09-16 06:06] LABS: Albumin, Blood 1.3 g/dL (3.4-5.0); Anion Gap 0 mmol/L (6-16); Blood Urea Nitrogen 37 mg/dL (8-24); Bun/Creatinine Ratio 39.4 (12.0-20.0); CO2, Blood 31 mmol/L (21-32); Calcium, Blood 8.5 mg/dL (8.5-10.1); Chloride, Blood 125 mmol/L (98-108); Creatinine, Blood 0.94 mg/dL (0.60-1.20); Glomerular Filtration Rate 86 (60-); Glucose, Blood 261 mg/dL (70-99); Phosphorus, Blood 2.3 mg/dL (2.5-4.9); Potassium, Blood 4.3 mmol/L (3.5-5.5); Sodium, Blood 156 mmol/L (136-145)
--- NOTE | 2023-09-16 06:41 | NUR ---
SHIFT SUMMARY NO ACUTE EVENTS T/O NIGHT. REMAINS INTUBATED WITH NO SEDATION. ON PS 12/5 30%. RR 10-22. VSS. PT MORE AWAKE T/O NIGHT. FOLLOWING SIMPLE COMMANDS. UNABLE TO MEDICAL CLERK WITH LEFT HAND BUT MOVES IT SPONT. OGT WITH TF AT GOAL. NICK PATENT AND DRAINING TO GRAVITY. PT HAD ONE BM THIS SHIFT. DRSG TO LATERAL THIGH C/D/I. WILL REPORT OFF TO ONCOMING RN.
[2023-09-16 08:06] LABS: Vancomycin, Trough 13.5 ug/mL (5.0-10.0)
[2023-09-16] MEDS ORDERED: Dextrose 5% 500 ML IV ONE (08:25)
[2023-09-16] MEDS ORDERED: Potassium Phos/Sodium Phos 250 MG PACK PT ONE (09:00)
[2023-09-16] MEDS ORDERED: Insulin Regular 100 UNIT/ML 10ML Vial SC SCH (12:00)
[2023-09-16] MEDS ORDERED: Ampicillin Sod/Sulbactam Sod 3 GM in NS 100 ML IV SCH (12:00)
[2023-09-16 15:32] LABS: Albumin, Blood 1.2 g/dL (3.4-5.0); Anion Gap Unable to Calculate mmol/L (6-16); Blood Urea Nitrogen 36 mg/dL (8-24); CO2, Blood 32 mmol/L (21-32); Calcium, Blood 7.9 mg/dL (8.5-10.1); Chloride, Blood 122 mmol/L (98-108); Creatinine, Blood 0.88 mg/dL (0.60-1.20); Glomerular Filtration Rate 91 (60-); Glucose, Blood 293 mg/dL (70-99); Phosphorus, Blood 1.7 mg/dL (2.5-4.9); Potassium, Blood 4.4 mmol/L (3.5-5.5); Sodium, Blood 153 mmol/L (136-145)
[2023-09-16] MEDS ORDERED: Dextrose 5% 1,000 ML IV SCH (16:15)
[2023-09-16] MEDS ORDERED: Albumin (Human) 25gm/100ml 100 ML IV SCH (18:00)
--- NOTE | 2023-09-16 18:26 | NUR ---
SUMMARY PT INTUBATED. NO SEDATION. WILL OPEN EYE'S ON COMMAND, SQUEEZE HANDS BILAT, AND MOVES LEGS. PT MOVES SELF IN BED AND CROSSES LEG FREQUENTLY. ON PS 10/5 FIO2 30%. MOD AMT OF WHITE/YELLOW SPUTUM. DRESSING TO WOUND ON R HIP WAS CHANGED TODAY. CLEANSED WITH WOUND FOREIGN LANGUAGE TEACHER THEN PLACED KERLEX SOAKED IN DAKIN'S SOLUTION IN WOUND THEN COVERED WITH ABD PAD. PT HAS REDNESS TO GROIN THAT HAS SOME RAISED CRUST LIKE AREAS. BARRIER CREAM APPLIED AND SCROTUM ELEVATED. HAVING SOME SEROSANG DRAINAGE FROM SCROTUM. SODIUM CONTINUES TO BE ELEVATED. D5 STARTED AND GI FLUSHES INCREASED TO 200ML/Q1HR. SPOKE WITH DR. RAYA ABOUT HYPERTENSION, NO NEW ORDERS. NO SIGN OF DISTRESS, REMAINS IN RESTRAINTS DUE TO MOBILITY TOWARDS ETT.
[2023-09-16 18:45] LABS: Albumin, Blood 1.4 g/dL (3.4-5.0); Anion Gap 0 mmol/L (6-16); Blood Urea Nitrogen 36 mg/dL (8-24); Bun/Creatinine Ratio 38.3 (12.0-20.0); CO2, Blood 31 mmol/L (21-32); Calcium, Blood 8.1 mg/dL (8.5-10.1); Chloride, Blood 119 mmol/L (98-108); Creatinine, Blood 0.94 mg/dL (0.60-1.20); Glomerular Filtration Rate 86 (60-); Glucose, Blood 271 mg/dL (70-99); Phosphorus, Blood 1.8 mg/dL (2.5-4.9); Potassium, Blood 3.1 mmol/L (3.5-5.5); Sodium, Blood 150 mmol/L (136-145)
--- NOTE | 2023-09-16 18:48 | NUR ---
CALLED DR. RAYA WITH LAB RESULTS, HE WILL PLACE ORDERS.
--- NOTE | 2023-09-16 19:15 | NUR ---
ASSUMPTION OF CARE RECEIVED INTO CARE, REPORT GIVEN BY DAY RN. PT LYING IN BED WITH EYES CLOSED, INTUBATED ON NO SEDATIONS. DOES RESPOND TO VERBAL STIMULI. BILAT WRIST RESTRAINTS IN SITU. VENTILATING ADEQUATELY ON CURRENT PSV SETTINGS, SPO2>96%. IN NSR, BP STABLE. NO CONCERNS AT THIS TIME. PT APPEARS COMFORTABLE. SEE SHIFT ASSESSMENT FOR FURTHER DETAILS.
[2023-09-16] MEDS ORDERED: Potassium Phosphate Dibasic 30 MM in Dextrose 5% 500 ML IV STA (19:21)
[2023-09-16] MEDS ORDERED: Insulin Glargine-Yfgn 100 Unit/mL 3 ML SYR SC SCH (21:00)
[2023-09-17] VITALS (22 sets, daily range): BP systolic 102–158; BP diastolic 50–99
[2023-09-17 03:40] LABS: Hematocrit 28.4 % (37.0-53.0); Hemoglobin 9.5 g/dL (13.5-17.5); Mean Corpuscular HGB 29.8 pg (26.0-34.0); Mean Corpuscular HGB Conc 33.5 g/dL (31.5-36.5); Mean Corpuscular Volume 89 fL (80-100); Mean Platelet Volume 12.1 fL (9.1-12.4); NRBC ABSOLUTE 0.02 K/mm3 (0.00-0.02); NRBC Auto 0.2 /100 WBC (0.0-0.2); Platelet Count 79 K/mm3 (150-400); RDW Coefficient Variation 13.6 % (11.7-14.2); RDW Standard Deviation 44.3 fL (35.1-46.3); Red Blood Cell Count 3.19 M/mm3 (4.30-5.90); White Blood Cell Count 9.85 K/mm3 (4.00-11.30)
[2023-09-17 04:11] LABS: Albumin, Blood 1.3 g/dL (3.4-5.0); Albumin/Globulin Ratio 0.3 (0.8-1.8); Bilirubin, Total 0.4 mg/dL (0.1-1.0); Bun/Creatinine Ratio 35.8 (12.0-20.0); Calcium, Blood 7.4 mg/dL (8.5-10.1); Creatinine, Blood 0.84 mg/dL (0.60-1.20); Globulin, Blood 4.3 g/dL (2.2-4.0); Magnesium, Blood 1.6 mg/dL (1.6-2.4); Phosphorus, Blood 2.5 mg/dL (2.5-4.9); Potassium, Blood 3.3 mmol/L (3.5-5.5); Total Protein, Blood 5.6 g/dL (6.4-8.2)
[2023-09-17 04:27] LABS: BAND PERCENT MAN 2 % (0-8); BASOPHILS PERCENT MAN 0 % (0-2); EOSINOPHILS ABSOLUTE MAN 0.19 K/mm3 (0.00-0.68); EOSINOPHILS PERCENT MAN 2 % (0-6); LYMPHOCYTES ABSOLUTE MAN 0.98 K/mm3 (0.84-5.20); LYMPHOCYTES PERCENT MAN 10 % (21-46); MONOCYTES ABSOLUTE MAN 0.68 K/mm3 (0.16-1.47); MONOCYTES PERCENT MAN 7 % (4-13); NEUTROPHILS ABSOLUTE MAN 7.97 K/mm3 (1.96-9.15); SEG NEUTROPHILS PERCENT MAN 79 % (41-73); TOTAL CELLS COUNTED 100
[2023-09-17] MEDS ORDERED: Potassium Chloride 20 MEQ/15 ML UDC PT ONE (05:30)
--- NOTE | 2023-09-17 06:10 | NUR ---
SHIFT SUMMARY OPENS EYES TO VERBAL STIMULI, FOLLOWS COMMANDS, MOVES EXTREMETIES WEAKLY/SPONTANEOUSLY. RESTRAINED TO WRISTS BILAT. NO SEDATION. IN SR, SBP 140-150S. ON PSV 10/5 30%, MODERATE AMOUNT YELLOW SECRETIONS NOW TURNING PINK. STRONG COUGH. OG IN PLACE WITH TF RUNNING AT GOAL RATE, FLUSHED 200ML Q1H FOR INCREASED NA LEVEL. TEMP NICK IN PLACE, 1950ML OUT. K3.3, REPLACED ORALLY. KPHOS GIVEN AT HS. NO CONCERNS AT THIS TIME, VSS, VENTILATING ADEQUATELY.
[2023-09-17] MEDS ORDERED: Mag Sulfate 1 GM/D5% 100ML 100 ML IV STA (07:15)
--- NOTE | 2023-09-17 07:15 | NUR ---
Assumed care of pt at 0700. Bedside report received from Rasheeda RIVAS. Pt not receiving sedation. Responsive to verbal stimulus. Moves all extremities on command. Rn Ed stronger on L side than R side. Vent settings PS 10/5 and 30% FiO2. SpO2 high 90s. Actual RR 18-22 with dial volumes 300-400 mL.
[2023-09-17] MEDS ORDERED: Albumin (Human) 25gm/100ml 100 ML IV ONE (07:20)
[2023-09-17] MEDS ORDERED: Calcium Gluconate 10% 1,000 MG in NS 50 ML IV ONE (07:20)
--- NOTE | 2023-09-17 07:30 | NUR ---
Dr Bo in to see patient. Discussed electrolytes. Provider also assessed surgical wound to R posterior/lateral thigh. Wound bed pale pink and oily in appearance. Fresh dakin's soaked gauze, 4x4 and ABD pad placed and secured with medipore tape.
[2023-09-17] MEDS ORDERED: Potassium Phos/Sodium Phos 250 MG PACK PO ONE (08:00)
[2023-09-17] MEDS ORDERED: Furosemide 10 MG/ML 4ML Vial IV ONE (08:00)
--- NOTE | 2023-09-17 09:52 | NUR ---
Noted that OG tube appeared to be out several inches. OG tube secured. TF stopped and CXR ordered. Tube advanced per v/o Dr Burgos. Repeat CXR obtained and tube feed restrated per v/o Dr Alcantara.
[2023-09-17] MEDS ORDERED: NS 250 ML IV PRN (10:20)
[2023-09-17] MEDS ORDERED: Miconazole Nitrate 2% 85 GM PWD TOP SCH ×2 (10:40→21:00)
[2023-09-17] MEDS ORDERED: Arginine/Glutamine/Calcium Hmb 1 Packet PT SCH (14:10)
[2023-09-17 14:21] LABS: Albumin, Blood 1.8 g/dL (3.4-5.0); Anion Gap 1 mmol/L (6-16); Blood Urea Nitrogen 27 mg/dL (8-24); Bun/Creatinine Ratio 29.9 (12.0-20.0); CO2, Blood 31 mmol/L (21-32); Calcium, Blood 7.9 mg/dL (8.5-10.1); Chloride, Blood 113 mmol/L (98-108); Glomerular Filtration Rate 90 (60-); Glucose, Blood 220 mg/dL (70-99); Phosphorus, Blood 2.3 mg/dL (2.5-4.9); Potassium, Blood 3.8 mmol/L (3.5-5.5); Sodium, Blood 145 mmol/L (136-145)
[2023-09-17] MEDS ORDERED: Potassium Phosphate Dibasic 15 MM in Dextrose 5% 250 ML IV ONE (15:45)
[2023-09-17] MEDS ORDERED: Morphine Sulfate 20 MG/1ML 1 ML Oral Syringe PO PRN (16:15)
[2023-09-17] MEDS ORDERED: Insulin Regular 100 UNIT/ML 10ML Vial IV SCH (18:00)
[2023-09-17] MEDS ORDERED: Insulin Regular 100 UNIT/ML 10ML Vial SC SCH (18:00)
--- NOTE | 2023-09-17 18:41 | NUR ---
SUMMARY Neuro: Remains off sedation. Responsive to verbal stimulus. Follows commands with BUE and BLE. Does not stay awake in absence of stimulus. Resp: Lungs clear t/o. SpO2 90% or greater with PS 8/5 and 30%. Sputum initially thick pink and is now thin and clear. Cardiac: SR per monitor. BP stable. GI: Tube feed and flush per orders. Skin: Unchanged from initial assessment.
[2023-09-17] MEDS ORDERED: Insulin Glargine-Yfgn 100 Unit/mL 3 ML SYR SC SCH (21:00)
--- NOTE | 2023-09-17 22:14 | NUR ---
INITIAL NOTE Report received, no acute concerns noted at shift change. Assessment performed, patient awakened to voice, able to follow basic commands but very weak in legs, left arm. Drifts asleep quickly once no longer stimulated. VS stable, tolerated medications. Current vent setting 30% FiO2, 8 PS, 5 PEEP, ventilating about 375-400 TV. Respirations even, coughs with suction. Sinus with edema most significant in hands. Blood sugar stable, insulin given. Patient had large loose BM, cleaned and also given bed bath at that time, wound care performed as well to right hip due to saturation of dressing. SCDs in place, PICC flushes and noted blood return in proximal port. TF infusing at 50 ml, good output from azevedo, clear, kwasi/yellow. Denied needs and quickly falls asleep. Monitoring otherwise, deep suction performed and only minimal amounts yellow/clear substance removed. Continuing to monitor, oral cares, turning performed. Restraints checked.
[2023-09-18] VITALS (21 sets, daily range): BP systolic 113–138; BP diastolic 55–77
[2023-09-18 04:27] LABS: Hematocrit 26.2 % (37.0-53.0); Hemoglobin 8.7 g/dL (13.5-17.5); Mean Corpuscular HGB 29.8 pg (26.0-34.0); Mean Corpuscular HGB Conc 33.2 g/dL (31.5-36.5); Mean Corpuscular Volume 90 fL (80-100); Mean Platelet Volume 12.1 fL (9.1-12.4); Platelet Count 128 K/mm3 (150-400); RDW Coefficient Variation 13.8 % (11.7-14.2); RDW Standard Deviation 45.4 fL (35.1-46.3); Red Blood Cell Count 2.92 M/mm3 (4.30-5.90); White Blood Cell Count 12.08 K/mm3 (4.00-11.30)
[2023-09-18 04:43] LABS: Albumin, Blood 1.6 g/dL (3.4-5.0); Anion Gap 2 mmol/L (6-16); Blood Urea Nitrogen 41 mg/dL (8-24); Bun/Creatinine Ratio 43.7 (12.0-20.0); CO2, Blood 30 mmol/L (21-32); Calcium, Blood 7.5 mg/dL (8.5-10.1); Chloride, Blood 116 mmol/L (98-108); Creatinine, Blood 0.94 mg/dL (0.60-1.20); Glomerular Filtration Rate 86 (60-); Glucose, Blood 290 mg/dL (70-99); Magnesium, Blood 2.2 mg/dL (1.6-2.4); Phosphorus, Blood 2.3 mg/dL (2.5-4.9); Potassium, Blood 3.2 mmol/L (3.5-5.5); Sodium, Blood 148 mmol/L (136-145)
[2023-09-18 05:01] LABS: BAND PERCENT MAN 2 % (0-8); BASOPHILS PERCENT MAN 0 % (0-2); EOSINOPHILS ABSOLUTE MAN 0.48 K/mm3 (0.00-0.68); EOSINOPHILS PERCENT MAN 4 % (0-6); LYMPHOCYTES PERCENT MAN 5 % (21-46); MONOCYTES ABSOLUTE MAN 0.96 K/mm3 (0.16-1.47); MONOCYTES PERCENT MAN 8 % (4-13); NEUTROPHILS ABSOLUTE MAN 10.02 K/mm3 (1.96-9.15); SEG NEUTROPHILS PERCENT MAN 81 % (41-73); TOTAL CELLS COUNTED 100
--- NOTE | 2023-09-18 05:59 | NUR ---
SHIFT SUMMARY No acute changes during shift except patient continued with loose BM, changed out bedding and partial bath given as well as reinforced/changed dressing to right hip. Remained stable on monitor, CBG remained stable despite higher doses of s/s insulin, likely needing titration of long-acting. No changes to vent settings, deep suction performed with scant to no secretions, clear in color remainder of evening. Changed infusion site from PICC line to IV site earlier and at that time, noted good blood return from proximal site, positional. Saline-locked PICC, good output from azevedo overnight, and rectal tube remained intact, no leakage noted at present. Patient awoke briefly, able to follow commands at those times but remained very drowsy. No pain indicators noted, denied concerns when able to follow commands. Monitoring otherwise, report in progress.
[2023-09-18] MEDS ORDERED: Potassium Phosphate Dibasic 30 MM in Dextrose 5% 500 ML IV ONE (06:00)
[2023-09-18] MEDS ORDERED: Calcium Gluconate 10% 1,000 MG in NS 50 ML IV ONE (06:55)
[2023-09-18 07:30] LABS: Vancomycin, Trough 12.2 ug/mL (5.0-10.0)
[2023-09-18] MEDS ORDERED: Vancomycin HCL 750 MG in NS 100 ML IV SCH (08:00)
[2023-09-18] MEDS ORDERED: Insulin Glargine-Yfgn 100 Unit/mL 3 ML SYR SC SCH (09:00)
--- NOTE | 2023-09-18 09:09 | NUR ---
Assumed care of pt at 0700. Bedside report received from Dwayne RIVAS and Sandee RIVAS. Pt is not sedated. Opens eyes with verbal stimulus. Makes eye contact with staff. Follows commands as instructed with Tonya. On PS 8/5 with 30% FiO2. Actual RR 18-22 with tidal volumes 350-400 mL. SR per monitor. BP stable.
[2023-09-18] MEDS ORDERED: Heparin Sodium,Porcine 5,000 UNIT/0.5 ML SDV SC SCH (10:30)
[2023-09-18] MEDS ORDERED: Insulin Human Regular 100 UNIT/ML 10ML Vial SC SCH (12:00)
--- NOTE | 2023-09-18 12:30 | NUR ---
Extubated at 1220 to 4 LPM NC. OG tube and restraints removed at this time. ETCO2 mid 30s, which is similar to ETCO2 while intubated. SpO2 90% or greater. Respirations even and unlabored.
[2023-09-18 13:13] LABS: Albumin, Blood 1.5 g/dL (3.4-5.0); Anion Gap 0 mmol/L (6-16); Blood Urea Nitrogen 39 mg/dL (8-24); Bun/Creatinine Ratio 43.2 (12.0-20.0); CO2, Blood 29 mmol/L (21-32); Calcium, Blood 8.2 mg/dL (8.5-10.1); Chloride, Blood 116 mmol/L (98-108); Glomerular Filtration Rate 90 (60-); Glucose, Blood 343 mg/dL (70-99); Phosphorus, Blood 4.2 mg/dL (2.5-4.9); Potassium, Blood 3.8 mmol/L (3.5-5.5); Sodium, Blood 145 mmol/L (136-145)
[2023-09-18] MEDS ORDERED: D5W-1/2NS KCl 20mEq 1,000 ML IV SCH (13:40)
[2023-09-18 17:42] LABS: Albumin, Blood 1.5 g/dL (3.4-5.0); Anion Gap 0 mmol/L (6-16); Blood Urea Nitrogen 39 mg/dL (8-24); CO2, Blood 29 mmol/L (21-32); Calcium, Blood 7.9 mg/dL (8.5-10.1); Chloride, Blood 120 mmol/L (98-108); Creatinine, Blood 0.93 mg/dL (0.60-1.20); Glomerular Filtration Rate 87 (60-); Glucose, Blood 238 mg/dL (70-99); Phosphorus, Blood 2.9 mg/dL (2.5-4.9); Potassium, Blood 3.4 mmol/L (3.5-5.5); Sodium, Blood 149 mmol/L (136-145)
[2023-09-18] MEDS ORDERED: Dextrose 5% 1,000 ML IV SCH (17:55)
[2023-09-18] MEDS ORDERED: Potassium Chloride 40 MEQ in NS 250 ML IV ONE (18:00)
[2023-09-18] MEDS ORDERED: Nystatin 100,000 Unit/GM CREAM 15 GM TOP PRN (18:15)
--- NOTE | 2023-09-18 18:19 | NUR ---
SUMMARY Neuro: A&O x 1. Answers questions, follows commands, verbalizes needs. Pleasant and cooperative with care. Asleep in absence of stimulation. Does not typically speak unless he is spoken to or asked a question. Voice is soft and breathy. Moves all extremities spontaneously. Resp: Lungs clear t/o. SpO2 90% or greater RA. ETCO2 monitoring remains in place- 33. Respirations even and unlabored. Loose, moist, weak, nonproductive cough. Cardiac: SR per monitor. BP stable. GI: OG tube removed. Rectal tube remains in place with new liquid output this shift. : Good urine output from azevedo catheter. Skin: New redness noted to R heel. Photographs placed in chart. Dressed with protective bordered foam dressing. Dr Bo notified. Majority of site is blanchable.
--- NOTE | 2023-09-18 20:57 | NUR ---
INITIAL NOTE Report received, patient extubated and presently on room air with ETCO2 detecting, VS remain stable, patient alert, oriented to self only, but able to answer appropriately. Declines remembering checking in to hotel and alert to year, believed "August", additionally was unsure where he was, oriented patient to location, patient very soft-spoken presently but admitted he does know where [facility] is. Weak cough, non-productive at present. Lungs diminished, no acute concerns, VS otherwise stable presently. Rectal tube remains intact, good output clear/yellow from azevedo, PICC infusing without concerns, medications given and held oral due to swallow concerns, risk for aspiration. CBG stable, long-acting insulin given. Lights turned low, call light in reach, monitoring patient.
[2023-09-18] MEDS ORDERED: Ipratropium/Albuterol SulF 2.5-0.5MG/3 ML Amp INH PRN (22:30)
[2023-09-18] MEDS ORDERED: Acetylcysteine 200 MG/ML 4ML Vial INH SCH (22:35)
--- NOTE | 2023-09-18 22:36 | NUR ---
INTERVENTION NOTE Called RT due to discussion earlier about percussion therapy or acapella with off-going RN regarding therapies to strengthen pulmonary function, RT discussed Mucomyst/Duoneb to be added, spoke with MD and these have been added. Patient aware, requested to keep light on.
[2023-09-19] VITALS (23 sets, daily range): BP systolic 96–138; BP diastolic 51–75
[2023-09-19 03:50] LABS: BASOPHILS ABSOLUTE AUTO 0.02 K/mm3 (0.00-0.23); BASOPHILS PERCENT AUTO 0 % (0-2); EOSINOPHILS ABSOLUTE AUTO 0.17 K/mm3 (0.00-0.68); EOSINOPHILS PERCENT AUTO 1 % (0-6); Hematocrit 25.3 % (37.0-53.0); Hemoglobin 8.3 g/dL (13.5-17.5); IMMATURE GRAN PERCENT AUTO 1 % (0-1); LYMPHOCYTES ABSOLUTE AUTO 1.09 K/mm3 (0.84-5.20); LYMPHOCYTES PERCENT AUTO 7 % (21-46); MONOCYTES ABSOLUTE AUTO 1.04 K/mm3 (0.16-1.47); MONOCYTES PERCENT AUTO 6 % (4-13); Mean Corpuscular HGB 29.9 pg (26.0-34.0); Mean Corpuscular HGB Conc 32.8 g/dL (31.5-36.5); Mean Corpuscular Volume 91 fL (80-100); Mean Platelet Volume 11.4 fL (9.1-12.4); NEUTROPHILS ABSOLUTE AUTO 13.67 K/mm3 (1.96-9.15); NEUTROPHILS PERCENT AUTO 85 % (41-73); Platelet Count 215 K/mm3 (150-400); RDW Standard Deviation 46.1 fL (35.1-46.3); Red Blood Cell Count 2.78 M/mm3 (4.30-5.90); White Blood Cell Count 16.19 K/mm3 (4.00-11.30)
[2023-09-19 04:10] LABS: Albumin, Blood 1.4 g/dL (3.4-5.0); Anion Gap 2 mmol/L (6-16); Blood Urea Nitrogen 29 mg/dL (8-24); Bun/Creatinine Ratio 31.4 (12.0-20.0); CO2, Blood 27 mmol/L (21-32); Calcium, Blood 8.1 mg/dL (8.5-10.1); Chloride, Blood 123 mmol/L (98-108); Creatinine, Blood 0.92 mg/dL (0.60-1.20); Glomerular Filtration Rate 88 (60-); Glucose, Blood 84 mg/dL (70-99); Phosphorus, Blood 2.2 mg/dL (2.5-4.9); Potassium, Blood 3.4 mmol/L (3.5-5.5); Sodium, Blood 152 mmol/L (136-145)
[2023-09-19] MEDS ORDERED: Acetaminophen 160MG / 5ML 10.15 UDC XX PRN (04:20)
[2023-09-19] MEDS ORDERED: Dextrose 5% 1,000 ML IV SCH (05:50)
[2023-09-19] MEDS ORDERED: Potassium Phosphate Dibasic 30 MM in Dextrose 5% 500 ML IV STA (05:50)
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
[2023-09-19] MEDS ORDERED: Insulin Glargine-Yfgn 100 Unit/mL 3 ML SYR SC SCH (09:00)
--- NOTE | 2023-09-19 09:00 | NUR ---
Sodium results discussed with Dr Bo. Provider ordered rate of fluids changed from 200 mL/hr to 150 mL/hr.
--- NOTE | 2023-09-19 13:19 | NUR ---
Dr Bo notified of sodium results. D5 stopped. Next check at 1600.
[2023-09-19] MEDS ORDERED: Acetylcysteine 200 MG/ML 4ML Vial INH SCH ×2 (13:35→22:35)
--- NOTE | 2023-09-19 17:15 | NUR ---
Dr Bo rounding on patient. Updated on most recent sodium and CBG values. No new orders.
--- NOTE | 2023-09-19 18:31 | NUR ---
SUMMARY Neuro: A&O x 1. Was not able to state he was in hospital when prompted but was able to state he is in [place]. Was able to state "2023" as current year but did not know the month. Profound weakness. Follows directions but struggles to move BUE/BLE. PT/OT ordered but did not see pt today. Up in chair for 6 hours. Resp: SpO2 90% or greater RA. Resp even and unlabored. Dry, nonproductive cough. Cardiac: SR per monitor. BP stable. GI: Diet ordered by . Pt was cantankerous around lunch time and refused lunch despite encouragement and being offered mulitiple times over several horus. He was willing to eat after Dr Bo discussed importance of nutrition and tolerated prescribed diet well. For dinner time, pt is too lethargic for safe PO intake. : Good urine output from [place]. Skin: Unchanged from inital assessment. Psychosocial: Labile mood. Sometimes answers questions appropriately and other times has nonsensical speech that is not contextually appropriate.
[2023-09-19 20:44] LABS: Vancomycin, Trough 16.4 ug/mL (5.0-10.0)
[2023-09-20] VITALS (22 sets, daily range): BP systolic 97–136; BP diastolic 49–82
[2023-09-20 04:39] LABS: BASOPHILS ABSOLUTE AUTO 0.02 K/mm3 (0.00-0.23); BASOPHILS PERCENT AUTO 0 % (0-2); EOSINOPHILS ABSOLUTE AUTO 0.14 K/mm3 (0.00-0.68); EOSINOPHILS PERCENT AUTO 1 % (0-6); Hematocrit 23.8 % (37.0-53.0); IMMATURE GRAN ABSOLUTE AUTO 0.19 K/mm3 (0.00-0.10); IMMATURE GRAN PERCENT AUTO 1 % (0-1); LYMPHOCYTES ABSOLUTE AUTO 1.17 K/mm3 (0.84-5.20); LYMPHOCYTES PERCENT AUTO 8 % (21-46); MONOCYTES ABSOLUTE AUTO 0.83 K/mm3 (0.16-1.47); MONOCYTES PERCENT AUTO 6 % (4-13); Mean Corpuscular HGB Conc 33.6 g/dL (31.5-36.5); Mean Corpuscular Volume 89 fL (80-100); Mean Platelet Volume 10.6 fL (9.1-12.4); NEUTROPHILS ABSOLUTE AUTO 11.61 K/mm3 (1.96-9.15); NEUTROPHILS PERCENT AUTO 83 % (41-73); Platelet Count 303 K/mm3 (150-400); RDW Coefficient Variation 14.2 % (11.7-14.2); RDW Standard Deviation 46.1 fL (35.1-46.3); Red Blood Cell Count 2.67 M/mm3 (4.30-5.90); White Blood Cell Count 13.96 K/mm3 (4.00-11.30)
--- NOTE | 2023-09-20 04:43 | NUR ---
SHIFT SUMMARY: PT RESTING COMFORTABLY IN BED. HE WAKENS SPONTANEOUSLY AND IS ABLE TO COMMUNICATE HIS NEEDS. PT HAS BEEN A&O X2. HE IS UNABLE TO REMEMBER THE DATE OR WHY HE IS IN THE HOSPITAL. 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 HE DENIES ANY N/V, PAIN, OR DIZZINESS. HE HAS BEEN ABLE TO MOVE ALL HIS EXTREMITIES, BUT IS VERY WEAK. HE HAS BEEN TURNED Q2 HR WITH EFFORT TO REDUCE PRESSURE ON EXISTING INJURIES. HEELS ELEVATED OFF BED. PT REQUIRED 2L NC WHILE SLEEPING TO MAINTAIN O2 SAT'S > 90 AND HAS HAD A PRODUCTIVE COUGH. HR AND BLOOD PRESSURE ARE STABLE. PT HAS A RECTAL TUBE AND NICK IN PLACE AND DRAINING APPROPRIATLY. PT SAFETY MAINTAINED.
[2023-09-20 05:40] LABS: Albumin, Blood 1.3 g/dL (3.4-5.0); Albumin/Globulin Ratio 0.3 (0.8-1.8); Bilirubin, Total 0.5 mg/dL (0.1-1.0); Bun/Creatinine Ratio 21.4 (12.0-20.0); Calcium, Blood 8.1 mg/dL (8.5-10.1); Creatinine, Blood 0.94 mg/dL (0.60-1.20); Globulin, Blood 4.7 g/dL (2.2-4.0); Magnesium, Blood 2.1 mg/dL (1.6-2.4); Phosphorus, Blood 2.1 mg/dL (2.5-4.9); Potassium, Blood 3.4 mmol/L (3.5-5.5)
[2023-09-20] MEDS ORDERED: Potassium Phosphate Dibasic 30 MM in Dextrose 5% 500 ML IV ONE (06:10)
[2023-09-20] MEDS ORDERED: Dextrose 5% 1,000 ML IV SCH (07:40)
[2023-09-20] MEDS ORDERED: Furosemide 10 MG/ML 4ML Vial IV ONE (08:00)
[2023-09-20] MEDS ORDERED: Albumin (Human) 25gm/100ml 100 ML IV ONE (08:00)
[2023-09-20 13:10] LABS: Albumin, Blood 1.8 g/dL (3.4-5.0); Anion Gap 5 mmol/L (6-16); Blood Urea Nitrogen 16 mg/dL (8-24); Bun/Creatinine Ratio 16.8 (12.0-20.0); CO2, Blood 24 mmol/L (21-32); Calcium, Blood 7.9 mg/dL (8.5-10.1); Chloride, Blood 108 mmol/L (98-108); Creatinine, Blood 0.95 mg/dL (0.60-1.20); Glomerular Filtration Rate 85 (60-); Glucose, Blood 450 mg/dL (70-99); Phosphorus, Blood 3.7 mg/dL (2.5-4.9); Potassium, Blood 3.3 mmol/L (3.5-5.5)
[2023-09-20] MEDS ORDERED: Ondansetron HCl 2 MG / ML 2ML Vial IV PRN (13:10)
[2023-09-20 13:19] LABS: Sodium, Blood 137 mmol/L (136-145)
[2023-09-20] MEDS ORDERED: D5W-1/2NS 1,000 ML IV SCH (13:30)
[2023-09-20 14:17] LABS: Albumin, Blood 1.9 g/dL (3.4-5.0); Anion Gap 3 mmol/L (6-16); Blood Urea Nitrogen 17 mg/dL (8-24); Bun/Creatinine Ratio 16.3 (12.0-20.0); CO2, Blood 25 mmol/L (21-32); Calcium, Blood 8.3 mg/dL (8.5-10.1); Chloride, Blood 114 mmol/L (98-108); Creatinine, Blood 1.04 mg/dL (0.60-1.20); Glomerular Filtration Rate 76 (60-); Glucose, Blood 193 mg/dL (70-99); Phosphorus, Blood 3.5 mg/dL (2.5-4.9); Potassium, Blood 3.3 mmol/L (3.5-5.5); Sodium, Blood 142 mmol/L (136-145)
[2023-09-20] MEDS ORDERED: Potassium Chl 10MEQ/Water100ML 100 ML IV ONE (14:40)
[2023-09-20] MEDS ORDERED: NS 250 ML IV PRN (14:50)
--- NOTE | 2023-09-20 18:46 | NUR ---
Shift summary. Pt in bed, up to chair this afternoon for several hours. Pt confused, oriented to self and surroundings with periods of increased confusion. Pt refusing to eat meals, will drink a little thickened water. Pt refusing oral care repeatedly this shift. No acute events, see chart for further details. Will report off to nightshift RN.
[2023-09-21] VITALS (12 sets, daily range): BP systolic 94–144; BP diastolic 47–101
[2023-09-21 05:33] LABS: BASOPHILS ABSOLUTE AUTO 0.01 K/mm3 (0.00-0.23); BASOPHILS PERCENT AUTO 0 % (0-2); EOSINOPHILS ABSOLUTE AUTO 0.12 K/mm3 (0.00-0.68); EOSINOPHILS PERCENT AUTO 1 % (0-6); Hematocrit 22.2 % (37.0-53.0); Hemoglobin 7.4 g/dL (13.5-17.5); IMMATURE GRAN ABSOLUTE AUTO 0.15 K/mm3 (0.00-0.10); IMMATURE GRAN PERCENT AUTO 1 % (0-1); LYMPHOCYTES ABSOLUTE AUTO 1.12 K/mm3 (0.84-5.20); LYMPHOCYTES PERCENT AUTO 10 % (21-46); MONOCYTES ABSOLUTE AUTO 0.65 K/mm3 (0.16-1.47); MONOCYTES PERCENT AUTO 6 % (4-13); Mean Corpuscular HGB 30.2 pg (26.0-34.0); Mean Corpuscular HGB Conc 33.3 g/dL (31.5-36.5); Mean Corpuscular Volume 91 fL (80-100); Mean Platelet Volume 10.5 fL (9.1-12.4); NEUTROPHILS ABSOLUTE AUTO 9.16 K/mm3 (1.96-9.15); NEUTROPHILS PERCENT AUTO 82 % (41-73); Platelet Count 416 K/mm3 (150-400); RDW Coefficient Variation 14.1 % (11.7-14.2); RDW Standard Deviation 46.2 fL (35.1-46.3); Red Blood Cell Count 2.45 M/mm3 (4.30-5.90); White Blood Cell Count 11.21 K/mm3 (4.00-11.30)
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
[2023-09-21 06:17] LABS: Albumin, Blood 1.7 g/dL (3.4-5.0); Albumin/Globulin Ratio 0.4 (0.8-1.8); Bilirubin, Total 0.6 mg/dL (0.1-1.0); Bun/Creatinine Ratio 18.1 (12.0-20.0); C-REACTIVE PROTEIN, EXT RANGE 13.7 mg/dL (0.000-0.300); Calcium, Blood 8.3 mg/dL (8.5-10.1); Creatinine, Blood 0.99 mg/dL (0.60-1.20); Globulin, Blood 4.6 g/dL (2.2-4.0); Phosphorus, Blood 2.8 mg/dL (2.5-4.9); Potassium, Blood 3.2 mmol/L (3.5-5.5); Total Protein, Blood 6.3 g/dL (6.4-8.2)
[2023-09-21] MEDS ORDERED: Potassium Chloride 40 MEQ in NS 250 ML IV ONE (06:25)
[2023-09-21 07:13] LABS: Vancomycin, Trough 19.4 ug/mL (5.0-10.0)
[2023-09-21] MEDS ORDERED: Vancomycin HCL 1,500 MG in NS 250 ML IV SCH (12:00)
--- NOTE | 2023-09-21 18:38 | NUR ---
Shift summary. Pt up to chair for much of shift. Much more alert and oriented today, able to tolerate increased po intake. Pt still delusional at times, very focused on finding family, no emergency contact on file with [facility]. Pinon catheter removed, rectal tube removed. R/thigh wound cleaned and redressed during bath. D5W infusing at 50 ml/hr through PICC. VS stable this shift, no acute events. See chart for further details. Will report off to nightshift RN.
[2023-09-22] VITALS (19 sets, daily range): BP systolic 109–142; BP diastolic 46–86
[2023-09-22 05:05] LABS: BASOPHILS ABSOLUTE AUTO 0.02 K/mm3 (0.00-0.23); BASOPHILS PERCENT AUTO 0 % (0-2); EOSINOPHILS ABSOLUTE AUTO 0.11 K/mm3 (0.00-0.68); EOSINOPHILS PERCENT AUTO 1 % (0-6); Hematocrit 23.6 % (37.0-53.0); Hemoglobin 7.7 g/dL (13.5-17.5); IMMATURE GRAN ABSOLUTE AUTO 0.15 K/mm3 (0.00-0.10); IMMATURE GRAN PERCENT AUTO 1 % (0-1); LYMPHOCYTES ABSOLUTE AUTO 1.21 K/mm3 (0.84-5.20); LYMPHOCYTES PERCENT AUTO 10 % (21-46); MONOCYTES PERCENT AUTO 6 % (4-13); Mean Corpuscular HGB 29.6 pg (26.0-34.0); Mean Corpuscular HGB Conc 32.6 g/dL (31.5-36.5); Mean Corpuscular Volume 91 fL (80-100); Mean Platelet Volume 10.3 fL (9.1-12.4); NEUTROPHILS ABSOLUTE AUTO 10.33 K/mm3 (1.96-9.15); NEUTROPHILS PERCENT AUTO 82 % (41-73); Platelet Count 509 K/mm3 (150-400); RDW Coefficient Variation 13.9 % (11.7-14.2); RDW Standard Deviation 45.9 fL (35.1-46.3); White Blood Cell Count 12.52 K/mm3 (4.00-11.30)
[2023-09-22 05:22] LABS: Albumin, Blood 1.6 g/dL (3.4-5.0); Anion Gap 3 mmol/L (6-16); Blood Urea Nitrogen 24 mg/dL (8-24); Bun/Creatinine Ratio 27.3 (12.0-20.0); CO2, Blood 26 mmol/L (21-32); Calcium, Blood 8.3 mg/dL (8.5-10.1); Chloride, Blood 113 mmol/L (98-108); Creatinine, Blood 0.88 mg/dL (0.60-1.20); Glomerular Filtration Rate 91 (60-); Glucose, Blood 276 mg/dL (70-99); Phosphorus, Blood 1.7 mg/dL (2.5-4.9); Potassium, Blood 3.1 mmol/L (3.5-5.5); Sodium, Blood 142 mmol/L (136-145)
[2023-09-22] MEDS ORDERED: Potassium Chloride 40 MEQ IV SCH (05:35)
[2023-09-22] MEDS ORDERED: Potassium Chloride 40 MEQ in NS 250 ML IV ONE (05:35)
[2023-09-22] MEDS ORDERED: Potassium Phosphate Dibasic 20 MM in Dextrose 5% 500 ML IV ONE (07:55)
[2023-09-22] MEDS ORDERED: Insulin Regular 100 UNIT/ML 10ML Vial SC SCH (11:30)
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
[2023-09-22 20:07] LABS: Albumin, Blood 1.7 g/dL (3.4-5.0); Anion Gap 4 mmol/L (6-16); Blood Urea Nitrogen 21 mg/dL (8-24); CO2, Blood 25 mmol/L (21-32); Calcium, Blood 8.6 mg/dL (8.5-10.1); Chloride, Blood 113 mmol/L (98-108); Creatinine, Blood 0.88 mg/dL (0.60-1.20); Glomerular Filtration Rate 91 (60-); Glucose, Blood 250 mg/dL (70-99); Phosphorus, Blood 2.7 mg/dL (2.5-4.9); Potassium, Blood 3.4 mmol/L (3.5-5.5); Sodium, Blood 142 mmol/L (136-145)
[2023-09-22] MEDS ORDERED: Potassium Chloride 20 MEQ TabCR PO ONE (20:35)
[2023-09-22] MEDS ORDERED: QUEtiapine Fumarate 25 MG Tab PO SCH (21:00)
[2023-09-22] MEDS ORDERED: Melatonin 3 MG Tab PO SCH (21:00)
[2023-09-23] VITALS (17 sets, daily range): BP systolic 92–154; BP diastolic 48–113
[2023-09-23 04:07] LABS: BASOPHILS ABSOLUTE AUTO 0.02 K/mm3 (0.00-0.23); BASOPHILS PERCENT AUTO 0 % (0-2); EOSINOPHILS ABSOLUTE AUTO 0.15 K/mm3 (0.00-0.68); EOSINOPHILS PERCENT AUTO 1 % (0-6); Hematocrit 24.1 % (37.0-53.0); Hemoglobin 7.9 g/dL (13.5-17.5); IMMATURE GRAN ABSOLUTE AUTO 0.08 K/mm3 (0.00-0.10); IMMATURE GRAN PERCENT AUTO 1 % (0-1); LYMPHOCYTES ABSOLUTE AUTO 1.34 K/mm3 (0.84-5.20); LYMPHOCYTES PERCENT AUTO 13 % (21-46); MONOCYTES ABSOLUTE AUTO 0.66 K/mm3 (0.16-1.47); MONOCYTES PERCENT AUTO 6 % (4-13); Mean Corpuscular HGB 29.4 pg (26.0-34.0); Mean Corpuscular HGB Conc 32.8 g/dL (31.5-36.5); Mean Corpuscular Volume 90 fL (80-100); Mean Platelet Volume 10.4 fL (9.1-12.4); NEUTROPHILS ABSOLUTE AUTO 8.34 K/mm3 (1.96-9.15); NEUTROPHILS PERCENT AUTO 79 % (41-73); Platelet Count 508 K/mm3 (150-400); RDW Coefficient Variation 13.9 % (11.7-14.2); RDW Standard Deviation 45.4 fL (35.1-46.3); Red Blood Cell Count 2.69 M/mm3 (4.30-5.90); White Blood Cell Count 10.59 K/mm3 (4.00-11.30)
[2023-09-23 04:24] LABS: Albumin, Blood 1.6 g/dL (3.4-5.0); Albumin/Globulin Ratio 0.3 (0.8-1.8); Bilirubin, Total 0.4 mg/dL (0.1-1.0); Bun/Creatinine Ratio 24.6 (12.0-20.0); Calcium, Blood 8.5 mg/dL (8.5-10.1); Creatinine, Blood 0.89 mg/dL (0.60-1.20); Globulin, Blood 4.9 g/dL (2.2-4.0); Potassium, Blood 3.3 mmol/L (3.5-5.5); Total Protein, Blood 6.5 g/dL (6.4-8.2)
[2023-09-23] MEDS ORDERED: Potassium Chloride 40 MEQ in NS 250 ML IV ONE (06:15)
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
[2023-09-24] VITALS: BP 124/55
[2023-09-24 04:00] VITALS: BP 142/72
[2023-09-24 06:06] LABS: BASOPHILS ABSOLUTE AUTO 0.02 K/mm3 (0.00-0.23); BASOPHILS PERCENT AUTO 0 % (0-2); EOSINOPHILS ABSOLUTE AUTO 0.21 K/mm3 (0.00-0.68); EOSINOPHILS PERCENT AUTO 2 % (0-6); Hematocrit 25.5 % (37.0-53.0); Hemoglobin 8.3 g/dL (13.5-17.5); IMMATURE GRAN ABSOLUTE AUTO 0.12 K/mm3 (0.00-0.10); IMMATURE GRAN PERCENT AUTO 1 % (0-1); LYMPHOCYTES ABSOLUTE AUTO 1.53 K/mm3 (0.84-5.20); LYMPHOCYTES PERCENT AUTO 16 % (21-46); MONOCYTES PERCENT AUTO 6 % (4-13); Mean Corpuscular HGB 29.6 pg (26.0-34.0); Mean Corpuscular HGB Conc 32.5 g/dL (31.5-36.5); Mean Corpuscular Volume 91 fL (80-100); Mean Platelet Volume 10.3 fL (9.1-12.4); NEUTROPHILS ABSOLUTE AUTO 6.87 K/mm3 (1.96-9.15); NEUTROPHILS PERCENT AUTO 74 % (41-73); Platelet Count 562 K/mm3 (150-400); RDW Coefficient Variation 13.8 % (11.7-14.2); RDW Standard Deviation 45.7 fL (35.1-46.3); White Blood Cell Count 9.35 K/mm3 (4.00-11.30)
--- NOTE | 2023-09-24 06:08 | NUR ---
SHIFT SUMMARY: AFTER RECIEVING HS MEDICATIONS PT WAS ABLE TO SLEEP MOST OF THE NIGHT. HE DID HAVE INTERMITTENT EPISODES OF CONFUSION WITH WAKING, BUT WAS EASILY REDIRECTABLE. PT HAD MULTIPLE INCONTINENT BM'S OVERNIGHT BUT WAS ABLE TO REQUEST FOR THE URINAL WHEN HE NEEDED IT. HIS STRENGTH HAS INCREASED FROM LAST NIGHT AND HE HAS BEEN ABLE TO ASSIST WITH TURNS FOR LINEN AND ATTENDS CHANGES. PT HAS BEEN ABLE TO SHIFT AND TURN IN BED AND REQUESTED TO NOT BE TURNED WITH PILLOWS. PT WAS EDUCATED ON THE IMPORTANCE OF TURNING AND POSSIBLILTY OF SKIN BREAKDOWN. HE STATED THAT HE UNDERSTANDS AND INSISTED THAT HE IS ABLE TO SHIFT AND TURN IN BED WHEN NEEDED. PT'S VSS. HR 60-110. BP WNL. O2 >92% ON RA. HE REMAINS FIXATED ON HIS BELONGINGS AND REQUESTS FOR SOMEONE TO PLEASE REACH OUT THE THE HOTEL TO SEE IF SOMEONE CAN BRING BELONGINGS TO HOSPTITAL.
[2023-09-24 06:37] LABS: Albumin, Blood 1.9 g/dL (3.4-5.0); Albumin/Globulin Ratio 0.3 (0.8-1.8); Bilirubin, Total 0.2 mg/dL (0.1-1.0); Bun/Creatinine Ratio 28.5 (12.0-20.0); Calcium, Blood 9.2 mg/dL (8.5-10.1); Creatinine, Blood 0.84 mg/dL (0.60-1.20); Globulin, Blood 5.5 g/dL (2.2-4.0); Phosphorus, Blood 2.3 mg/dL (2.5-4.9); Potassium, Blood 3.6 mmol/L (3.5-5.5); Total Protein, Blood 7.4 g/dL (6.4-8.2)
[2023-09-24 08:00] VITALS: BP 134/72
[2023-09-24] MEDS ORDERED: Insulin Glargine-Yfgn 100 Unit/mL 3 ML SYR SC SCH (09:00)
[2023-09-24] MEDS ORDERED: Potassium Phosphate Dibasic 15 MM in Dextrose 5% 250 ML IV STA (09:28)
[2023-09-24 11:58] LABS: Vancomycin, Trough 15.6 ug/mL (5.0-10.0)
[2023-09-24 16:00] VITALS: BP 154/76
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
--- NOTE | 2023-09-24 18:38 | NUR ---
Shift summary. Pt up to chair for much of day, worked with OT. Continued to improve cognitively, pt only incontinent of bowel one time this morning, asking for urinal to void. Pt belongings retrieved from hotel, car remains at hotel. All wounds cleaned and dressings changed this shift. Pt able to stand with assistance today. Status changed to MED with telemetry. No acute events this shift, see chart for further details. Will report off to nightshift RN.
--- NOTE | 2023-09-24 19:00 | NUR ---
ASSUMPTION OF CARE RECEIVED INTO CARE, BEDSIDE REPORT GIVEN BY DAY ROB PINEDA. PT AWAKE AND ALERT LYING IN BED WATCHING TV. ON TELE HR 70S. ON RA SPO2>98%. NO VOICED CONCERNS BY PT AT THIS TIME. CALL ROMERO IN REACH. SEE SHIFT ASSESSMENT FOR FURTHER DETAILS.
[2023-09-24 19:50] VITALS: BP 144/76
--- NOTE | 2023-09-24 23:34 | NUR ---
TRANSFER OF CARE REPORT GIVEN TO MEDICAL RN. PT TRANSFERRED ON BED TO ROOM 358 WITH ALL BELONGINGS AND CHART, ON TELE IN SR HR 68. ASSISTED WITH TRANSFER TO NEW BED. NO VOICED CONCERNS BY PT. NO QUESTIONS OR CONCERNS BY MEDICAL RN.
[2023-09-24] MEDS ORDERED: HYDCHL25 PO (23:40)
[2023-09-24] MEDS ORDERED: OMEP20ER PO (23:40)
[2023-09-24] MEDS ORDERED: ZESTRIL40 M1 PO (23:40)
[2023-09-24] MEDS ORDERED: Pravastatin Sod40 MG PO (23:41)
[2023-09-24] MEDS ORDERED: METFORMIN HCL500 M2 PO (23:41)
[2023-09-24] MEDS ORDERED: PIOGLITAZONE HC45 MG PO (23:41)
[2023-09-24] MEDS ORDERED: NOVOLOG FL100 UNIT/3 SC (23:42)
[2023-09-24] MEDS ORDERED: MOBIC15 MG PO (23:42)
[2023-09-25 02:53] VITALS: BP 130/67
--- NOTE | 2023-09-25 03:27 | NUR ---
SHIFT SUMMERY, PT MOVED FROM ICU BED TO MED FLOOR BED WITH 4 PERSON ASSIST.PT HAS BEEN RESTING IN BED SLEEPING. CALL LIGHT IN REACH BED ALARM ON.
[2023-09-25 06:30] LABS: BASOPHILS ABSOLUTE AUTO 0.02 K/mm3 (0.00-0.23); BASOPHILS PERCENT AUTO 0 % (0-2); EOSINOPHILS ABSOLUTE AUTO 0.22 K/mm3 (0.00-0.68); EOSINOPHILS PERCENT AUTO 3 % (0-6); Hematocrit 24.1 % (37.0-53.0); Hemoglobin 7.8 g/dL (13.5-17.5); IMMATURE GRAN ABSOLUTE AUTO 0.08 K/mm3 (0.00-0.10); IMMATURE GRAN PERCENT AUTO 1 % (0-1); LYMPHOCYTES ABSOLUTE AUTO 1.65 K/mm3 (0.84-5.20); LYMPHOCYTES PERCENT AUTO 19 % (21-46); MONOCYTES ABSOLUTE AUTO 0.71 K/mm3 (0.16-1.47); MONOCYTES PERCENT AUTO 8 % (4-13); Mean Corpuscular HGB 29.2 pg (26.0-34.0); Mean Corpuscular HGB Conc 32.4 g/dL (31.5-36.5); Mean Corpuscular Volume 90 fL (80-100); Mean Platelet Volume 9.9 fL (9.1-12.4); NEUTROPHILS ABSOLUTE AUTO 5.88 K/mm3 (1.96-9.15); NEUTROPHILS PERCENT AUTO 69 % (41-73); Platelet Count 528 K/mm3 (150-400); RDW Coefficient Variation 14.2 % (11.7-14.2); RDW Standard Deviation 45.7 fL (35.1-46.3); Red Blood Cell Count 2.67 M/mm3 (4.30-5.90); White Blood Cell Count 8.56 K/mm3 (4.00-11.30)
[2023-09-25 06:39] LABS: Albumin, Blood 1.8 g/dL (3.4-5.0); Albumin/Globulin Ratio 0.4 (0.8-1.8); Bilirubin, Total 0.3 mg/dL (0.1-1.0); Bun/Creatinine Ratio 21.2 (12.0-20.0); Creatinine, Blood 0.85 mg/dL (0.60-1.20); Globulin, Blood 4.9 g/dL (2.2-4.0); Phosphorus, Blood 2.7 mg/dL (2.5-4.9); Potassium, Blood 3.2 mmol/L (3.5-5.5); Total Protein, Blood 6.7 g/dL (6.4-8.2)
[2023-09-25 07:29] VITALS: BP 131/58
[2023-09-25] MEDS ORDERED: Potassium Chloride 20 MEQ TabCR PO ONE (09:00)
[2023-09-25] MEDS ORDERED: Insulin Glargine-Yfgn 100 Unit/mL 3 ML SYR SC SCH (09:00)
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
--- NOTE | 2023-09-25 15:40 | NUR ---
dressing to pt right hip was changed as ordered, pt tolerated well, his briefs were changed as well, no further needs at this time. call light in reach.
--- NOTE | 2023-09-25 18:29 | NUR ---
pt doing ok, has been turned and changed throughout the day, no acute changes this shift, call light in reach.
[2023-09-25 19:28] VITALS: BP 137/67
[2023-09-25] MEDS ORDERED: Pravastatin Sodium 20 MG Tab PO SCH (21:00)
--- NOTE | 2023-09-26 04:24 | NUR ---
SHIFT SUMMERY, PT RESTING IN BED. PT SEEMING TO BE SLEEPING BETTER TONIGHT THAN LAST NOC. EARLYIER PT HAS SM AMOUNT OF BLOOD ON NOSE AND ON RIGHT HANG . ASKED PT IF HE HAD A BLOODY NOSE AND PT REPLYED WHY DOSE EVERYONE KEEP ASKING ME IF I HAD A BLOODY NOSE. GOT WET CLOTH AND CLEANED OFF BLOOD TO HAND AND FACE . PT UNAWARE OF AND BLOOD COMMING FROM NOSE, AND IT WAS A VERY SM AMOUNT. CALL LIGHT IN REACH BED ALARM ON. PT CAN BE CONFUSED AT TIMES.
[2023-09-26 04:35] VITALS: BP 146/72
[2023-09-26 05:22] LABS: BASOPHILS ABSOLUTE AUTO 0.05 K/mm3 (0.00-0.23); BASOPHILS PERCENT AUTO 1 % (0-2); EOSINOPHILS ABSOLUTE AUTO 0.23 K/mm3 (0.00-0.68); EOSINOPHILS PERCENT AUTO 3 % (0-6); Hematocrit 25.5 % (37.0-53.0); Hemoglobin 8.1 g/dL (13.5-17.5); IMMATURE GRAN ABSOLUTE AUTO 0.09 K/mm3 (0.00-0.10); IMMATURE GRAN PERCENT AUTO 1 % (0-1); LYMPHOCYTES ABSOLUTE AUTO 1.97 K/mm3 (0.84-5.20); LYMPHOCYTES PERCENT AUTO 22 % (21-46); MONOCYTES ABSOLUTE AUTO 0.77 K/mm3 (0.16-1.47); MONOCYTES PERCENT AUTO 9 % (4-13); Mean Corpuscular HGB 29.2 pg (26.0-34.0); Mean Corpuscular HGB Conc 31.8 g/dL (31.5-36.5); Mean Corpuscular Volume 92 fL (80-100); Mean Platelet Volume 10.1 fL (9.1-12.4); NEUTROPHILS ABSOLUTE AUTO 5.69 K/mm3 (1.96-9.15); NEUTROPHILS PERCENT AUTO 65 % (41-73); Platelet Count 530 K/mm3 (150-400); RDW Coefficient Variation 14.4 % (11.7-14.2); RDW Standard Deviation 46.9 fL (35.1-46.3); Red Blood Cell Count 2.77 M/mm3 (4.30-5.90)
[2023-09-26 05:37] LABS: Bun/Creatinine Ratio 22.1 (12.0-20.0); Calcium, Blood 9.2 mg/dL (8.5-10.1); Creatinine, Blood 0.82 mg/dL (0.60-1.20); Potassium, Blood 3.8 mmol/L (3.5-5.5)
[2023-09-26 07:47] VITALS: BP 132/69
[2023-09-26 13:01] LABS: SARS-Cov-2 (COVID-19) PCR, MMC NEGATIVE (NEGATIVE)
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
--- NOTE | 2023-09-26 16:31 | NUR ---
Patient ready for discharge, plan to go to [facility]. Wound care done this shift, deep wound on right thigh, cleaned, and repacked and appplied dressing. Covid test negative, transport set up for 1615. Intake packet was left behind, Nurse at [facility] instructed RN to fax to to facility. Report given to [facility] RN. Patient left hospital at 1615.
== END 2023-09-26 15:37 | DRG 853 ==
LOC: ER 12:28 → MEDS 16:54 → ICUE 16:54 → MEDS 09-24 23:24 → ENPENDDIS 09-26 12:51 → MEDS 09-26 15:37
PROVIDERS: Emergency Medicine; Family Medicine; Internal Medicine Critical Care Medicine; Student in an Organized Health Care Education/Training Program; ADMIT Internal Medicine
PROC: 5A1955Z Respiratory Ventilation, Greater than 96 Consecutive Hours (ICD-10-PCS; principal; 2023-09-11)
PROC: 0BH17EZ Insertion of Endotracheal Airway into Trachea, Via Natural or Artificial Opening (ICD-10-PCS; 2023-09-11)
PROC: 4A033R1 Measurement of Arterial Saturation, Peripheral, Percutaneous Approach (ICD-10-PCS; 2023-09-11)
PROC: 3E033XZ Introduction of Vasopressor into Peripheral Vein, Percutaneous Approach (ICD-10-PCS; 2023-09-11)
PROC: 3E03329 Introduction of Other Anti-infective into Peripheral Vein, Percutaneous Approach (ICD-10-PCS; 2023-09-11)
PROC: 02HV33Z Insertion of Infusion Device into Superior Vena Cava, Percutaneous Approach (ICD-10-PCS; 2023-09-11)
PROC: 0T9B70Z Drainage of Bladder with Drainage Device, Via Natural or Artificial Opening (ICD-10-PCS; 2023-09-12)
PROC: 0KBR0ZZ Excision of Left Upper Leg Muscle, Open Approach (ICD-10-PCS; 2023-09-12)
DX: A41.02 Sepsis due to Methicillin resistant Staphylococcus aureus (principal); E11.01 Type 2 diabetes mellitus with hyperosmolarity with coma; G92.8 Other toxic encephalopathy; R65.21 Severe sepsis with septic shock; J96.00 Acute respiratory failure, unspecified whether with hypoxia or hypercapnia; J18.9 Pneumonia, unspecified organism; I96 Gangrene, not elsewhere classified; N17.9 Acute kidney failure, unspecified; M62.82 Rhabdomyolysis; L97.119 Non-pressure chronic ulcer of right thigh with unspecified severity; B96.3 Hemophilus influenzae [H. influenzae] as the cause of diseases classified elsewhere; E87.6 Hypokalemia; E83.51 Hypocalcemia; E83.39 Other disorders of phosphorus metabolism; E88.09 Other disorders of plasma-protein metabolism, not elsewhere classified; B96.89 Other specified bacterial agents as the cause of diseases classified elsewhere; E11.22 Type 2 diabetes mellitus with diabetic chronic kidney disease; N18.30 Chronic kidney disease, stage 3 unspecified; I12.9 Hypertensive chronic kidney disease with stage 1 through stage 4 chronic kidney disease, or unspecified chronic kidney disease; E78.5 Hyperlipidemia, unspecified; T68.XXXA Hypothermia, initial encounter; K21.9 Gastro-esophageal reflux disease without esophagitis; Z98.890 Other specified postprocedural states; E11.622 Type 2 diabetes mellitus with other skin ulcer; E87.5 Hyperkalemia; Z11.52 Encounter for screening for COVID-19
CPT/HCPCS: 36415; 36569; 36600; 51702; 70450; 71045; 71250; 72125; 76882; 80047; 80048; 80053; 80069; 80202; 81001; 82010; 82140; 82330; 82533; 82550; 82803; 82947; 83605; 83735; 83930; 83935; 84100; 84132; 84133; 84145; 84295; 84300; 84443; 84484; 85014; 85025; 85520; 85610; 85651; 85730; 86140; 87040; 87070; 87075; 87077; 87147; 87185; 87186; 87205; 88305; 92526; 92610; 93005; 93010; 93306; 94002; 94003; 94640; 94664; 94760; 94762; 96361; 96365; 96366; 96368; 97110; 97161; 97166; 97530; 99291-25; A9270; C1751; C8929; C9113; G0480; J0295; J0612; J0692; J0696; J1644; J1720; J1815; J1940; J2185; J2405; J3370; J3475; J3480; J7050; J7060; J7070; J7120; L0160; P9047; Q9957; U0002